=== PATIENT | male | born 1950 | race Caucasian/White ===

== ENCOUNTER 2017-01-24 14:20 | Inpatient (IN) | payer MEDICARE, OTHER ==
[2017-01-24 17:37] LABS: BASOPHILS # (AUTO) 0.1 10^3/uL (0.0-0.1); BASOPHILS % (AUTO) 0.6 %; EOSINOPHILS % (AUTO) 0.1 %; HCT - HEMATOCRIT 44.9 % (42.0-52.0); HGB - HEMOGLOBIN 15.3 g/dL (14.0-18.0); LYMPHOCYTES # (AUTO) 1.4 10^3/uL (1.5-3.5); LYMPHOCYTES % (AUTO) 9.6 %; MEAN CORPUSCULAR HGB CONC 34.1 g/dL (32.0-36.0); MEAN CORPUSCULAR VOLUME 105.4 fL (80.0-94.0); MEAN PLATELET VOLUME 7.3 fL (7.4-11.4); MONOCYTES # (AUTO) 1.1 10^3/uL (0.0-1.0); MONOCYTES % (AUTO) 7.5 %; NEUTROPHILS # (AUTO) 11.9 10^3/uL (1.5-6.6); NEUTROPHILS % (AUTO) 82.2 %; RED BLOOD COUNT 4.26 10^6/uL (4.70-6.10); RED CELL DISTRIBUTION WIDTH 13.5 % (12.0-15.0); UNCORRECTED WHITE BLOOD COUNT 14.4 x10^3/uL; WHITE BLOOD COUNT 14.4 x10^3/uL (4.8-10.8)
[2017-01-24 17:52] LABS: ALBUMIN/GLOBULIN RATIO 1.1 (1.0-2.2); BILIRUBIN,TOTAL 0.8 mg/dL (0.2-1.0); CALCIUM 9.3 mg/dL (8.5-10.3); POTASSIUM 4.8 mmol/L (3.5-5.0); TOTAL PROTEIN 7.7 g/dL (6.7-8.2)
[2017-01-24] MEDS ORDERED: SODIUM CHLORIDE 0.9% 2,000 ML IV ONE (18:19)
[2017-01-24 18:46] LABS: BILIRUBIN,URINE NEGATIVE (NEGATIVE); PH,URINE 5.5 PH (5.0-7.5)
[2017-01-24 18:47] LABS: UA w/ MICROSCOPIC CHARGE YES
[2017-01-24 18:59] LABS: UR CULTURE IF IND INDICATED
--- NOTE | 2017-01-24 19:54 | ED Physician Documentation ---
History of Present Illness - Stated complaint Stated Complaint: LT LOW BACK PX - Chief complaint Chief Complaint: General - Additonal information Additional information: hx from pt 66 male no prior abd surgery had hematuria 3 night ago but felt well next day had severe L flank pain which reslved spont pain returned today chills no BM today nausea no urination today despite drinking fluids Review of Systems Constitutional: reports: Chills. denies: Fever GI: reports: Abdominal Pain, Abdominal Swelling, Nausea : reports: Hematuria Musculoskeletal: reports: Back pain Endocrine: denies: Easy bruising / bleeding Immunocompromised: denies: Immunocompromised PD PAST MEDICAL HISTORY - Past Medical History Past Medical History: Yes Cardiovascular: Hypertension - Past Surgical History Past Surgical History: Yes - Present Medications Home Medications: Ambulatory Orders Medication Instructions Recorded Confirmed Lisinopril 10 mg PO DAILY 12/18/14 01/24/17 Calcium Carbonate/Vitamin D3 2 each PO DAILY 01/24/17 01/24/17 [Calcium 600-Vit D3 500 Softgel] Teriparatide [Forteo] 2.4 ml SQ DAILY 01/24/17 01/24/17 - Allergies Allergies/Adverse Reactions: Allergies Allergy/AdvReac Type Severity Reaction Status Date / Time No Known Drug Allergies Allergy Verified 01/24/17 14:57 - Social History Does the pt smoke?: No Smoking Status: Never smoker Does the pt drink ETOH?: Yes Does the pt have substance abuse?: No - Immunizations Immunizations are current?: No PD ED PE NORMAL - Vitals Vital signs reviewed: Yes - Cardiac Cardiac: RRR - Respiratory Respiratory: No respiratory distress, Clear bilaterally - Abdomen Abdomen: Soft, Other (distended, non tedner, no pulsatile mass appreciated, ) - Back Back: No CVA TTP - Derm Derm: Other (small single flat non blanching purpish discoloration ot posterior L hand) Results - Vitals Vitals: Vital Signs - 24 hr 01/24/17 01/24/17 01/24/17 14:51 17:51 20:16 Temperature 36.6 C 36.1 C L Heart Rate 117 H 112 H 107 H Respiratory 16 16 20 Rate Blood Pressure 137/85 H 157/92 H 149/60 H O2 Saturation 97 98 98 Oxygen O2 Source Room air - Labs Labs: Laboratory Tests 01/24/17 01/24/17 01/24/17 17:30 17:30 17:30 WBC 14.4 H RBC 4.26 L Hgb 15.3 Hct 44.9 MCV 105.4 H MCH 36.0 H MCHC 34.1 RDW 13.5 Plt Count 235 MPV 7.3 L Neut # 11.9 H Lymph # 1.4 L [place] # 1.1 H Eos # 0.0 Baso # 0.1 Absolute Nucleated RBC 0.00 Nucleated RBC % 0.0 Sodium 133 L Potassium 4.8 Chloride 97 L Carbon Dioxide 24 Anion Gap 12.0 BUN 13 Creatinine 1.0 Estimated GFR (MDRD) 75 L Glucose 132 H Lactic Acid 2.3 H Calcium 9.3 Total Bilirubin 0.8 AST 59 H ALT 55 Alkaline Phosphatase 62 Total Protein 7.7 Albumin 4.0 Globulin 3.7 Albumin/Globulin Ratio 1.1 Lipase 28 Urine Color Urine Clarity Urine pH Ur Specific [place] Urine Protein Urine Glucose (UA) Urine Ketones Urine Occult Blood Urine Nitrite Urine Bilirubin Urine Urobilinogen Ur Leukocyte Esterase Urine RBC Urine WBC Ur Squamous Epith Cells Urine Crystals Urine Bacteria Urine Casts Urine Mucus Ur Microscopic Review Urine Culture Comments 01/24/17 18:05 WBC RBC Hgb Hct MCV MCH MCHC RDW Plt Count MPV Neut # Lymph # [place] # Eos # Baso # Absolute Nucleated RBC Nucleated RBC % Sodium Potassium Chloride Carbon Dioxide Anion Gap BUN Creatinine Estimated GFR (MDRD) Glucose Lactic Acid Calcium Total Bilirubin AST ALT Alkaline Phosphatase Total Protein Albumin Globulin Albumin/Globulin Ratio Lipase Urine Color YELLOW Urine Clarity HAZY Urine pH 5.5 Ur Specific [place] 1.025 Urine Protein TRACE Urine Glucose (UA) NEGATIVE Urine Ketones NEGATIVE Urine Occult Blood LARGE H Urine Nitrite NEGATIVE Urine Bilirubin NEGATIVE Urine Urobilinogen 0.2 (NORMAL) Ur Leukocyte Esterase TRACE H Urine RBC 11-25 H Urine WBC 6-10 H Ur Squamous Epith Cells FEW Squamous Urine Crystals 11-25 Ca Oxalate Urine Bacteria Few Urine Casts 0-2 Hyaline Casts Urine Mucus Marked Strands Ur Microscopic Review INDICATED Urine Culture Comments INDICATED - Rads (name of study) CT AP angio Radiology: See rad report (mildly obstructing 5 X 3 mm proximal left ureteral stone, atherosclerotic aorta s dissection or aneurysm, mild stenosis celian and renals, prox sup mesenteric soft plaque withiut stenosis or dissection, emphysema) PD MEDICAL DECISION MAKING - ED course ED course: spoke to urology Dr Marshall at [facility] he feels pt could be kept at [facility] for tonight with the following recommendations rec rocephin 2 g q 24 h, IVF aggressive 200/hr, pain meds as needed, NPO for possible surgery tomorrow, CBC lactate BMP in AM, blood and urine cultures pending, if worsening or unstable overnight page urology, in AM page urology Dr Marshall for update and potential transfer Departure - Departure Disposition: 66 [facility] DC/Xfer Clinical Impression: Renal colic, Pyelonephritis, SIRS (systemic inflammatory response syndrome) Condition: Fair Discharge Date/Time: 01/24/17 23:15
[2017-01-24] MEDS ORDERED: IOPAMIDOL-300 100 ML VIAL ONE (20:26)
[2017-01-24] MEDS ORDERED: IOPAMIDOL-300 100 ML VIAL IVP ONE (20:43)
--- NOTE | 2017-01-24 21:09 | CT Preliminary Report ---
Exam: CT ABDOMEN/PELVIS ANGIO IMPRESSION: 1. Mildly obstructing 5 x 3 mm proximal left ureteral stone. 2. Atherosclerotic aorta without evidence of aneurysm or dissection. 3. Mild stenosis at the celiac and both renal artery origins. 4. Proximal superior mesenteric artery soft plaque without significant stenosis or dissection. 5. Emphysema. [facility] SITE ID: [id number]
--- NOTE | 2017-01-24 21:12 | CT Report ---
EXAM: CT ANGIOGRAM ABDOMEN AND PELVIS WITH CONTRAST EXAM DATE: 01/24/2017 08:50 PM. CLINICAL HISTORY: Abd pain L flank pain tachy high lactate. COMPARISONS: None. TECHNIQUE: Routine helical CT angiogram imaging was performed through the abdomen and pelvis in the a rterial phase. IV contrast: 100 ML ISOVUE 300. Enteric contrast: No. Reconstructions: Coronal, sagitt al, and 3D MIP reconstructions. In accordance with CT protocol optimization, one or more of the following dose reduction techniques w ere utilized for this exam: automated exposure control, adjustment of mA and/or KV based on patient s ize, or use of iterative reconstructive technique. FINDINGS: Vasculature: There is calcified plaque throughout the abdominal aorta and iliac arteries. No evidence of aneurysm or dissection. Focal plaque resulting in mild celiac artery origin stenosis. There is mi ld soft plaque in the proximal superior mesenteric artery however no significant stenosis. The inferi or mesenteric artery is patent. Mild stenosis seen at the renal artery origins. Lung Bases: Emphysematous changes. No pleural effusion. Abdominal Solid Organs: There is a 5 x 3 mm stone in the proximal left ureter resulting in mild colle cting system dilatation, slight delayed renal enhancement and perinephric stranding. No renal masses or retroperitoneal lymphadenopathy. The liver, pancreas and spleen are unremarkable. No adrenal gland mass. Normal gallbladder. Peritoneal Cavity: Normal. No free fluid, free air, or acute inflammatory process. Pelvic Organs: Normal. The bladder and visualized pelvic organs are within normal limits. Bones: There are multiple chronic lower thoracic and lumbar spine compression fracture deformities. N o acute bony abnormality. Other: None. IMPRESSION: 1. Mildly obstructing 5 x 3 mm proximal left ureteral stone. 2. Atherosclerotic aorta without evidence of aneurysm or dissection. 3. Mild stenosis at the celiac and both renal artery origins. 4. Proximal superior mesenteric artery soft plaque without significant stenosis or dissection. 5. Emphysema. [facility] Referring Provider Line: [phone] SITE ID: [id number]
[2017-01-24] MEDS ORDERED: cefTRIAXone 1 GM in SODIUM CHLORIDE 0.9% MINIBAG 100 ML IV STA ×2 (21:35→22:03)
[2017-01-24] MEDS ORDERED: cefTRIAXone 1 GM VIAL ONE ×2 (21:43→22:23)
[2017-01-24] MEDS ORDERED: SODIUM CHLORIDE 0.9% 1,000 ML IV ONE (22:03)
[2017-01-24] MEDS ORDERED: PROMETHAZINE 25 MG/1 ML VIAL IM PRN (22:14)
[2017-01-24] MEDS ORDERED: PROCHLORPERAZINE 10 MG/2 ML VIAL IVP PRN (22:14)
[2017-01-24] MEDS ORDERED: SODIUM CHLORIDE FLUSH 0.9% 10 ML SYRINGE IVP PRN (22:14)
[2017-01-24] MEDS ORDERED: ACETAMINOPHEN 325 MG TABLET PO PRN (22:14)
[2017-01-24] MEDS ORDERED: ONDANSETRON 4 MG/2 ML VIAL IVP PRN (22:14)
[2017-01-24] MEDS ORDERED: ZOLPIDEM 5 MG TABLET PO PRN (22:14)
[2017-01-24] MEDS ORDERED: MORPHINE 2 MG/ML SYRINGE IVP PRN (22:14)
[2017-01-24] MEDS ORDERED: oxyCODONE 5 MG TABLET PO PRN ×2 (22:14)
--- NOTE | 2017-01-25 02:53 | HISTORY & PHYSICAL EXAMINATION ---
Chief Complaint - Chief Complaint Chief Complaint: Left flank pain History of Present Illness - Admitted From Admitted From:: Emergency department - History Obtained From Records Reviewed: Yes History obtained from: Patient Exam Limitations: None - History of Present Illness HPI Comment/Other: Patient is a 66-year-old gentleman with a past medical history significant for 6 compression fractures with vertebral collapse secondary to osteoporosis, subclavian steal syndrome status post stenting, hypertension, obesity, peripheral arterial disease, Dupuytren's contracture in COPD who presents to the emergency department with a chief complaint of left flank pain. The patient states that he first noticed symptoms on Monday night which was 3 days ago. He states that initially he noticed that he was having increased urinary frequency. The patient later noticed that his urine was orange/reddish color but at that time he states he was having no pain at all. The patient states he continues to have increased urinary frequency throughout the next day but otherwise felt okay. The patient states that all of a sudden yesterday when he was standing up he felt a severe pain in the left flank. The patient states that the pain was a 10 out of 10 and lasted for several minutes. The patient states that he vomited twice and then tried to drink tons of fluid. The patient states that the pain initially decreased in intensity and then eventually resolved completely. The patient states he did not take any medications for the pain. The patient states that he was able to sleep at night and then this morning he felt okay. The patient states that just before lunch he again had this sudden onset of severe pain in the left flank. The patient states that he drank 42 ounces of water however today he noticed he was not urinating. The patient states that the pain waxed and waned throughout the rest of the day and would improve to as little as a 4 out of 10 but then would go back to a 10 out of 10 in intensity. The patient states that he began having sweats and felt very clammy he checked his temperature and it was normal. The patient states that he finally decided to come into the emergency department as the pain just was not subsiding. The patient states that on arrival to the emergency department he did have some chills and finally was able to make some urine after which he states that his pain did improve. Patient otherwise denies any headaches, blurred vision, runny nose, sore throat , nasal congestion, difficulty swallowing, chest pain, shortness of air, orthopnea, PND, increased lower extremity swelling, he currently denies any nausea, vomiting, diarrhea, constipation, he denies any joint swelling, muscle aches, neck stiffness, changes in his appetite, recent unintentional weight loss or focal neurologic deficits. On presentation to the emergency department the patient was afebrile however he was tachycardic with heart rate of 117 but his blood pressure was stable and he otherwise had no respiratory distress. The patient's lab work revealed a leukocytosis of 14.4 and a slight hyponatremia of 133. The patient did have an elevated lactic acid of 2.3 and the patient's urine revealed a large occult blood with trace leukocyte esterase positive RBCs and WBCs with calcium oxalate crystals and few bacteria. The patient underwent a CT angios of the abdomen and pelvis which revealed a mildly obstructing 5 x 3 mm proximal left ureteral stone. The emergency room physician spoke with an on-call urologist at [facility] by the name of Dr. Marshall. He recommended that the patient be kept at [facility] overnight and given 2 g of IV ceftriaxone every 24 hours, aggressive IV fluids at 200 mL's per hour, pain meds as needed and kept n.p.o. for possible surgery tomorrow. He also recommended a repeat CBC and lactate along with a BMP in the morning. He also asked that blood cultures and urine cultures be collected. He stated that if the patient became unstable or had worsening symptoms that he should be immediately paged overnight for possible transfer to [facility] he left his phone number which is [phone]. The patient was admitted to [facility]. History - Past Medical History Cardiovascular: reports: Hypertension Respiratory: reports: COPD Neuro: reports: None Endocrine/Autoimmune: reports: None GI: reports: None : reports: None HEENT: reports: None Psych: reports: None Musculoskeletal: reports: Osteoporosis, Other (6 vertebral compression fractures ) Derm: reports: None Other Past Medical History: dupuytren's contractures in both hands, spinal colapse, Osteoporosis, obesity, peripheral arterial disease, COPD, subclavian steal syndrome status post stent, 6 compression fractures. - Past Surgical History Ortho: reports: Spine surgery - Family & Social History Family History: Mother: , Cancer (Colon cancer), Father: , Sister: Diabetes, Type 2 Living arrangement: At home Living Situation: Alone Social History Notes: Patient lives on [facility] alone. He is a retired teacher. He moved to [facility] in 1992. 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 The patient has a history of tobacco abuse. The patient previously smoked 4 packs per day for over 30 years and quit about 10 years ago. The patient does drink alcohol he drinks 5-6 glasses of wine daily and he does use cannabis oil. - POLST Patient has POLST: No POLST Status: Full Code Meds/Allgy - Home Medications Home Medications: Ambulatory Orders Medication Instructions Recorded Confirmed Lisinopril 10 mg PO DAILY 12/18/14 01/24/17 Calcium Carbonate/Vitamin D3 2 each PO DAILY 01/24/17 01/24/17 [Calcium 600-Vit D3 500 Softgel] Teriparatide [Forteo] 2.4 ml SQ DAILY 01/24/17 01/24/17 - Allergies Allergies/Adverse Reactions: Allergies Allergy/AdvReac Type Severity Reaction Status Date / Time No Known Drug Allergies Allergy Verified 01/24/17 14:57 Review of Systems - Other Findings Other Findings: A comprehensive review of systems was performed the pertinent positives and negatives are stated above in the HPI and the remainder of the review of systems is negative. Exam - Vital Signs Reviewed Vital Signs: Yes Vital Signs: Vital Signs x48h Temp Pulse Pulse Resp BP BP Pulse Ox 01/24/17 23:49 169/84 H 01/24/17 23:46 36.9 C 88 24 171/78 H 97 01/24/17 23:15 37.4 C 91 16 165/74 H 97 - Physical Exam General Appearance: positive: No acute distress, Alert, Mild distress Eyes Bilateral: positive: Normal inspection, PERRL, EOMI, No lid inflammation, Conjunctivae nml, No scleral icterus ENT: positive: ENT inspection nml, Pharynx nml, Dry mucous membranes. negative : Purulent nasal drainage, Pharyngeal erythema, Oral lesions Neck: positive: Nml inspection, Thyroid nml, No JVD, Trachea midline. negative : Thyromegaly, Lymphadenopathy (R), Lymphadenopathy (L), Stiff neck, Carotid bruit, Tracheal deviation Respiratory: positive: Chest non-tender, No respiratory distress, Breath sounds nml. negative: Wheezes, Rales, Rhonchi Cardiovascular: positive: No murmur, No gallop, Tachycardia Peripheral Pulses: positive: 2+ Abdomen: positive: No organomegaly, Nml bowel sounds, No distention, Tenderness (Epigastric and right upper quadrant area). negative: Guarding, Rebound, Hepatomegaly Back: positive: Nml inspection, CVA tenderness (L) Skin: positive: Color nml, No rash, Warm, Dry. negative: Cyanosis, Pallor Extremities: positive: Nml appearance, No pedal edema, Other (Kyphosis) Neurologic/Psychiatric: positive: Oriented x3, CN's nml (2-12), Motor nml, Sensation nml, Mood/affect nml Conclusion/Plan - Problem List (1) Sepsis Conclusion/Plan: Patient presented with left flank pain with chills but no fever. He was found to have a mildly obstructing 5 x 3 mm proximal left ureteral stone with renal enhancement and perinephric stranding and left CVA tenderness. The patient's UA showed pyuria and bacteriuria with RBCs and blood consistent with pyelonephritis. The patient on presentation was tachycardic, had a leukocytosis of 14.4 and had a lactic acid of 2.3. Although patient did not have fever, change in mental status or renal failure he appears to have early sepsis secondary to pyelonephritis. Plan: Place patient on IV ceftriaxone for treatment of pyelonephritis Give patient aggressive hydration with IV fluids at 200 mL's per hour Monitor vital signs closely Monitor lactate Monitor CBC Blood cultures Urine cultures (2) Pyelonephritis Conclusion/Plan: Patient presented with left flank pain. Patient was also having increased urinary frequency at home and had chills on presentation. Patient was tachycardic on presentation with elevated lactic acid and WBC consistent with early sepsis. Patient CT abdomen pelvis showed that he did have a mildly obstructing ureteral stone with perinephric stranding consistent with pyelonephritis. Patient's UA was positive for WBCs, leukocyte esterase and bacteria. Patient did have left CVA tenderness. Plan: Patient will be treated with IV ceftriaxone for treatment of pyelonephritis Urine cultures and blood cultures have been obtained and are pending Urologist Dr. Marshall was spoken to at [facility] and asked that the patient be observed closely and if he had any deterioration that patient be transferred to [facility]. Aggressive IV hydration Nausea and pain control (3) Ureteral stone Conclusion/Plan: Patient has a mildly obstructing left ureteral stone which is 5 x 3 mm. Patient presented with left flank pain and left CVA tenderness. Patient's UA did have blood and RBCs but also had WBCs and bacteria. Patient was septic on presentation. Patient may have an infected ureteral stone and has developed pyelonephritis. Urologist Dr. Marshall of [facility] was contacted and recommended admitting the patient to [facility] for IV fluids, aggressive IV hydration, pain control and nausea control. He stated if the patient had any signs of deterioration that he would need to be transferred for removal of the ureteral stone. Plan: Treat with IV ceftriaxone Aggressive IV hydration Pain and nausea control N.p.o. after midnight for possible ureteral stone retrieval if needed Continue to stay in close contact with Dr. Marshall of urology at [facility] Urine and blood cultures pending (4) Hyponatremia Conclusion/Plan: Patient presented with hyponatremia. Patient likely has hypovolemic hyponatremia secondary to dehydration from sepsis and pyelonephritis. Plan: Give IV fluids Monitor sodium (5) COPD (chronic obstructive pulmonary disease) Conclusion/Plan: Patient has history of COPD and emphysema. Currently he is not in any respiratory distress and appears to be stable. Patient will be placed on nebulizers as needed. (6) Hypertension Conclusion/Plan: Patient has history of hypertension and did have elevated blood pressure on presentation likely secondary to pain. Patient will be dose of lisinopril was hospitalized. We will continue to monitor the patient's blood pressure closely. Qualifiers: Hypertension type: essential hypertension Qualified Code(s): I10 - Essential (primary) hypertension (7) Alcohol abuse Conclusion/Plan: Patient does drink excessive amount of alcohol daily. The patient drinks 5-6 glasses of wine daily. I did recommend to the patient that he needs to cut down on his alcohol use. The patient has never had alcohol withdrawal. Patient will be monitored closely for withdrawal. (8) Prophylactic use of low molecular weight heparin for venous thromboembolism Conclusion/Plan: Patient will be placed on Lovenox for DVT prophylaxis while he is hospitalized. - Lab Results Lab results reviewed: Yes Fish Bones: 01/24/17 17:30 01/24/17 17:30 Other Lab Results: Laboratory Results WBC 14.4 x10^3/uL (4.8-10.8) H 01/24/17 17:30 RBC 4.26 10^6/uL (4.70-6.10) L 01/24/17 17:30 Hgb 15.3 g/dL (14.0-18.0) 01/24/17 17:30 Hct 44.9 % (42.0-52.0) 01/24/17 17:30 MCV 105.4 fL (80.0-94.0) H 01/24/17 17:30 MCH 36.0 pg (27.0-31.0) H 01/24/17: MCHC 34.1 g/dL (32.0-36.0) 01/24/17 17: RDW 13.5 % (12.0-15.0) 01/24/17 17:30 Plt Count 235 10^3/uL (130-450) 01/24/17 17:30 MPV 7.3 fL (7.4-11.4) L 01/24/17 17:30 Neut # 11.9 10^3/uL (1.5-6.6) H 01/24/17 17:30 Lymph # 1.4 10^3/uL (1.5-3.5) L 01/24/17 17:30 [place] # 1.1 10^3/uL (0.0-1.0) H 01/24/17 17:30 Eos # 0.0 10^3/uL (0.0-0.7) 01/24/17 17:30 Baso # 0.1 10^3/uL (0.0-0.1) 01/24/17 17:30 Absolute Nucleated RBC 0.00 x10^3/uL 01/24/17 17:30 Nucleated RBC % 0.0 /100WBC 01/24/17 17:30 Sodium 133 mmol/L (135-145) L 01/24/17 17:30 Potassium 4.8 mmol/L (3.5-5.0) 01/24/17 17:30 Chloride 97 mmol/L (101-111) L 01/24/17 17:30 Carbon Dioxide 24 mmol/L (21-32) 01/24/17 17:30 Anion Gap 12.0 (6-13) 01/24/17 17:30 BUN 13 mg/dL (6-20) 01/24/17 17:30 Creatinine 1.0 mg/dL (0.6-1.2) 01/24/17 17:30 Estimated GFR (MDRD) 75 (>89) L 01/24/17 17:30 Glucose 132 mg/dL (70-100) H 01/24/17 17:30 Lactic Acid 2.3 mmol/L (0.5-2.2) H 01/24/17 17:30 Calcium 9.3 mg/dL (8.5-10.3) 01/24/17 17:30 Total Bilirubin 0.8 mg/dL (0.2-1.0) 01/24/17 17:30 AST 59 IU/L (10-42) H 01/24/17 17:30 ALT 55 IU/L (10-60) 01/24/17 17:30 Alkaline Phosphatase 62 IU/L (42-121) 01/24/17 17:30 Total Protein 7.7 g/dL (6.7-8.2) 01/24/17 17:30 Albumin 4.0 g/dL (3.2-5.5) 01/24/17 17:30 Globulin 3.7 g/dL (2.1-4.2) 01/24/17 17:30 Albumin/Globulin Ratio 1.1 (1.0-2.2) 01/24/17 17:30 Lipase 28 U/L (22-51) 01/24/17 17:30 Urine Color YELLOW 01/24/17 18:05 Urine Clarity HAZY (CLEAR) 01/24/17 18:05 Urine pH 5.5 PH (5.0-7.5) 01/24/17 18:05 Ur Specific [place] 1.025 (1.002-1.030) 01/24/17 18:05 Urine Protein TRACE mg/dL (NEGATIVE) 01/24/17 18:05 Urine Glucose (UA) NEGATIVE mg/dL (NEGATIVE) 01/24/17 18:05 Urine Ketones NEGATIVE mg/dL (NEGATIVE) 01/24/17 18:05 Urine Occult Blood LARGE (NEGATIVE) H 01/24/17 18:05 Urine Nitrite NEGATIVE (NEGATIVE) 01/24/17 18:05 Urine Bilirubin NEGATIVE (NEGATIVE) 01/24/17 18:05 Urine Urobilinogen 0.2 (NORMAL) E.U./dL (NORMAL) 01/24/17 18:05 Ur Leukocyte Esterase TRACE (NEGATIVE) H 01/24/17 18:05 Urine RBC 11-25 /HPF (0-5) H 01/24/17 18:05 Urine WBC 6-10 /HPF (0-3) H 01/24/17 18:05 Ur Squamous Epith Cells FEW Squamous (<= Few) 01/24/17 18:05 Urine Crystals 11-25 Ca Oxalate /LPF 01/24/17 18:05 Urine Bacteria Few /HPF (None Seen) 01/24/17 18:05 Urine Casts 0-2 Hyaline Casts /LPF 01/24/17 18:05 Urine Mucus Marked Strands 01/24/17 18:05 Ur Microscopic Review INDICATED 01/24/17 18:05 Urine Culture Comments INDICATED 01/24/17 18:05 - Diagnostic Imaging Results Diagnostic Imaging Results: positive: Final report reviewed Diagnostic Imaging Results Comments: CT abdomen/pelvis angiogram Impression: 1. Mildly obstructing 5 x 3 mm proximal left ureteral stone 2. Atherosclerotic aorta without evidence of aneurysm or dissection. 3. Mild stenosis at the celiac and both renal artery origins. 4. Proximal superior mesenteric artery soft plaque without significant stenosis or dissection. 5. Emphysema - EKG Results EKG Interpreted Independently: Yes EKG Findings: No ST elevations or ischemic changes noted Issues/Core Measures - Anticipated LOS Anticipated Stay Length: 2 or more midnights - DVT/VTE - Prophylaxis VTE/DVT Prophylaxis med ordered at admit?: Yes
[2017-01-25] MEDS: SODIUM CHLORIDE 0.9% 1,000 ML IV SCH ×5 (03:21→22:11)
[2017-01-25] MEDS: SODIUM CHLORIDE FLUSH 0.9% 10 ML SYRINGE IVP SCH ×3 (04:11→22:12)
[2017-01-25 05:52] LABS: BASOPHILS # (AUTO) 0.1 10^3/uL (0.0-0.1); BASOPHILS % (AUTO) 0.9 %; EOSINOPHILS % (AUTO) 0.5 %; HCT - HEMATOCRIT 37.1 % (42.0-52.0); HGB - HEMOGLOBIN 12.8 g/dL (14.0-18.0); LYMPHOCYTES # (AUTO) 1.7 10^3/uL (1.5-3.5); LYMPHOCYTES % (AUTO) 23.6 %; MEAN CORPUSCULAR HEMOGLOBIN 36.7 pg (27.0-31.0); MEAN CORPUSCULAR HGB CONC 34.5 g/dL (32.0-36.0); MEAN CORPUSCULAR VOLUME 106.3 fL (80.0-94.0); MEAN PLATELET VOLUME 7.2 fL (7.4-11.4); MONOCYTES # (AUTO) 0.7 10^3/uL (0.0-1.0); MONOCYTES % (AUTO) 10.2 %; NEUTROPHILS # (AUTO) 4.5 10^3/uL (1.5-6.6); NEUTROPHILS % (AUTO) 64.8 %; NUCLEATED RED BLOOD CELLS AUTO 0.1 /100WBC; RED BLOOD COUNT 3.49 10^6/uL (4.70-6.10); RED CELL DISTRIBUTION WIDTH 13.5 % (12.0-15.0)
[2017-01-25 05:59] LABS: ALBUMIN/GLOBULIN RATIO 1.1 (1.0-2.2); BILIRUBIN,TOTAL 0.9 mg/dL (0.2-1.0); CALCIUM 7.6 mg/dL (8.5-10.3); CREATININE 0.9 mg/dL (0.6-1.2); POTASSIUM 3.9 mmol/L (3.5-5.0); TOTAL PROTEIN 5.7 g/dL (6.7-8.2)
[2017-01-25] MEDS ORDERED: LISINOPRIL 5 MG TABLET PO SCH (09:00)
[2017-01-25] MEDS: SACCHAROMYCES BOULARDII 250 MG CAPSULE PO SCH ×2 (09:42→17:47)
[2017-01-25] MEDS: ENOXAPARIN 40 MG/0.4 ML SYRINGE SUBQ SCH (09:42)
[2017-01-25] MEDS: POLYETHYLENE GLYCOL 3350 17 GM PACKET PO SCH (09:43)
[2017-01-25] MEDS: FAMOTIDINE 20 MG TABLET PO SCH (09:43)
[2017-01-25] MEDS: IPRATROPIUM/ALBUTEROL 3 ML NEB INH PRN ×2 (09:50→15:40)
[2017-01-25] MEDS: LOSARTAN 50 MG TABLET PO SCH (11:45)
[2017-01-25] MEDS: OMEGA-3 ACID ETHYL ESTERS 1 GM CAPSULE PO SCH (12:56)
[2017-01-25] MEDS: CHOLECALCIFEROL 1,000 UNIT TABLET PO SCH (12:56)
[2017-01-25] MEDS: CALCIUM CARBONATE CHEW 500 MG TABLET PO SCH (12:56)
[2017-01-25] MEDS: TAMSULOSIN 0.4 MG CAPSULE PO SCH (14:36)
--- NOTE | 2017-01-25 16:21 | PROVIDER PROGRESS NOTE ---
Subjective - Prog Note Date Prog Note Date: 01/25/17 - Subjective Pt reports feeling: Improved Subjective: pt report he feel much better, no flank pain, no fever or chill. No chest pain, headache, abdominal pain. I called Dr. Marshall, urologist, ER already contacted with him before. I reported pt's update information to him. He recommend pt can be D/C tomorrow with Flomax , antibiotics Levaquin, pain meds if pt continue to improve. Current Medications - Current Medications Current Medications: Active Medications Acetaminophen (Tylenol) 650 mg PO Q4HR PRN PRN Reason: Pain 1 to 4 Albuterol/Ipratropium (Duoneb) 3 ml INH Q4HR PRN PRN Reason: Wheezing Last Admin: 01/26/17 09:12 Dose: 3 ml Calcium Carbonate/Glycine (Tums) 1,250 mg PO DAILY [facility] Last Admin: 01/26/17 07:42 Dose: 1,250 mg Cholecalciferol (Vitamin D3) 2,000 unit PO DAILY [facility] Last Admin: 01/26/17 07:43 Dose: 2,000 unit Enoxaparin Sodium (Lovenox) 40 mg SUBQ DAILY [facility] Last Admin: 01/26/17 07:53 Dose: Not Given Famotidine (Pepcid) 20 mg PO DAILY [facility] Last Admin: 01/26/17 07:44 Dose: 20 mg Fluticasone Propionate (Flonase) 0 sprays SLICK DAILY [facility] Last Admin: 01/26/17 07:44 Dose: 1 sprays Ceftriaxone Sodium 2 gm/ (Sodium Chloride) 100 mls @ 200 mls/hr IV Q24H [facility] Last Infusion: 01/25/17 22:45 Dose: Infused Sodium Chloride (Normal Saline 0.9%) 1,000 mls @ 200 mls/hr IV .Q5H [facility] Last Admin: 01/26/17 09:20 Dose: 200 mls/hr Losartan Potassium (Cozaar) 50 mg PO DAILY [facility] Last Admin: 01/26/17 07:44 Dose: 50 mg Morphine Sulfate (Morphine) 2 mg IVP Q2H PRN PRN Reason: Pain 8 to 10 [id number] Ethyl Esters (Lovaza) 1 gm PO DAILY [facility] Last Admin: 01/26/17 07:44 Dose: 1 gm Ondansetron HCl (Zofran Inj) 4 mg IVP Q6HR PRN PRN Reason: Nausea / Vomiting Oxycodone HCl (Roxicodone) 5 mg PO Q4HR PRN PRN Reason: Pain 5 to 7 Oxycodone HCl (Roxicodone) 10 mg PO Q4HR PRN PRN Reason: Pain 8 to 10 (Teriparatide [ Forteo] 2.4 Ml) Subq Injection 1 each SUBQ DAILY [facility] Last Admin: 01/26/17 09:06 Dose: Not Given Polyethylene Glycol (Miralax) 17 gm PO DAILY [facility] Last Admin: 01/26/17 09:07 Dose: Not Given Prochlorperazine Edisylate (Compazine Inj) 10 mg IVP Q6HR PRN PRN Reason: Nausea / Vomiting Promethazine HCl (Phenergan Inj) 25 mg IM Q6HR PRN PRN Reason: Nausea / Vomiting Saccharomyces Boulardii (Florastor) 250 mg PO BIDWM [facility] Last Admin: 01/26/17 07:41 Dose: 250 mg Sodium Chloride (Normal Saline Flush 0.9%) 10 ml IVP PRN PRN PRN Reason: NEEDED PER PROVIDER ORDERS Sodium Chloride (Normal Saline Flush 0.9%) 10 ml IVP Q8HR [facility] Last Admin: 01/26/17 06:23 Dose: Not Given Tamsulosin HCl (Flomax) 0.4 mg PO DAILY [facility] Last Admin: 01/26/17 07:44 Dose: 0.4 mg Zolpidem Tartrate (Ambien) 5 mg PO QPM PRN PRN Reason: Insomnia Teriparatide [Forteo] 2.4 ml SQ DAILY 01/24/17 Calcium Carbonate/Vitamin D3 [Calcium 600-Vit D3 400 Tablet] 2 tab PO DAILY Cholecalciferol (Vitamin D3) [Vitamin D3] 2,000 units PO DAILY 01/25/17 Losartan [Cozaar] 50 mg PO DAILY 01/25/17 [place]-3 Acid Ethyl Esters [Lovaza] 1 gm PO DAILY 01/25/17 Objective - Vital Signs/Intake & Output Reviewed Vital Signs: Yes Vital Signs: Vital Signs x48h Temp Pulse Pulse Resp BP Pulse Ox 01/25/17 15:40 87 16 01/25/17 15:23 37.1 C 86 18 148/79 H 96 01/25/17 12:55 36.9 C 81 16 145/66 H 96 01/25/17 09:50 94 16 Intake & Output: Intake & Output 01/22/17 01/23/17 01/24/17 01/25/17 23:59 23:59 23:59 23:59 Intake Total 100 2796.667 Output Total 800 Balance 100 1996.667 - Objective General Appearance: positive: No acute distress, Alert. negative: Lethargic Eyes Bilateral: positive: Normal inspection, PERRL, EOMI. negative: No lid inflammation, Conjunctivae nml ENT: positive: ENT inspection nml, Pharynx nml, No signs of dehydration. negative: Purulent nasal drainage, Pharyngeal erythema, Oral lesions Neck: positive: Nml inspection, Thyroid nml, No JVD, Trachea midline. negative : Thyromegaly, Lymphadenopathy (R), Lymphadenopathy (L), Stiff neck, Carotid bruit, Swelling/bruising, Tracheal deviation Respiratory: positive: Chest non-tender, No respiratory distress, Breath sounds nml. negative: Wheezes, Rales, Rhonchi Cardiovascular: positive: Regular rate & rhythm, No murmur, No gallop. negative : Irregularly irregular, Extrasystoles, Tachycardia, Bradycardia, Systolic murmur, Diastolic murmur Peripheral Pulses: 2+ Radial (R), 2+ Radial (L), 2+ Dorsalis pedis (R), 2+ Dorsalis pedis (L) Abdomen: positive: Non-tender, No organomegaly, Nml bowel sounds, No distention. negative: Tenderness, Guarding, Rebound Back: positive: Nml inspection. negative: CVA tenderness (R), CVA tenderness (L ) Skin: positive: Color nml, No rash, Warm, Dry. negative: Cyanosis, Diaphoresis , Pallor, Skin rash Extremities: positive: Non-tender, Full ROM, Nml appearance. negative: Pedal edema, Joint swelling, Selvin's sign/cords Neurologic/Psychiatric: positive: Oriented x3, Motor nml, Sensation nml, Mood/ affect nml. negative: Weakness, Sensory loss, Facial droop, Slurred/abnml speech, Depressed mood/affect - Lab Results Fish Bones: 01/26/17 05:42 01/26/17 05:42 Other Labs: Lab Results x24hrs 01/25/17 01/25/17 01/25/17 Range/Units 05:40 05:40 05:40 WBC 7.0 (4.8-10.8) x10^3/uL RBC 3.49 L (4.70-6.10) 10^6/uL Hgb 12.8 L (14.0-18.0) g/dL Hct 37.1 L (42.0-52.0) % MCV 106.3 H (80.0-94.0) fL MCH 36.7 H (27.0-31.0) pg MCHC 34.5 (32.0-36.0) g/dL RDW 13.5 (12.0-15.0) % Plt Count 193 (130-450) 10^3/uL MPV 7.2 L (7.4-11.4) fL Neut # 4.5 (1.5-6.6) 10^3/uL Lymph # 1.7 (1.5-3.5) 10^3/uL [place] # 0.7 (0.0-1.0) 10^3/uL Eos # 0.0 (0.0-0.7) 10^3/uL Baso # 0.1 (0.0-0.1) 10^3/uL Absolute Nucleated RBC 0.00 x10^3/uL Nucleated RBC % 0.1 /100WBC Sodium 137 (135-145) mmol/L Potassium 3.9 (3.5-5.0) mmol/L Chloride 108 (101-111) mmol/L Carbon Dioxide 23 (21-32) mmol/L Anion Gap 6.0 (6-13) BUN 10 (6-20) mg/dL Creatinine 0.9 (0.6-1.2) mg/dL Estimated GFR (MDRD) 84 L (>89) Glucose 115 H (70-100) mg/dL Lactic Acid 1.1 (0.5-2.2) mmol/L Calcium 7.6 L (8.5-10.3) mg/dL Total Bilirubin 0.9 (0.2-1.0) mg/dL AST 30 (10-42) IU/L ALT 35 (10-60) IU/L Alkaline Phosphatase 44 (42-121) IU/L Total Protein 5.7 L (6.7-8.2) g/dL Albumin 3.0 L (3.2-5.5) g/dL Globulin 2.7 (2.1-4.2) g/dL Albumin/Globulin Ratio 1.1 (1.0-2.2) Assessment/Plan - Problem List (1) Renal colic Impression: (1) Sepsis Conclusion/Plan: pt's WBC and lactic acid lever is down to normal. No fever, chill, pain. HR in [facility] It is great improved. continue IV antibiotics and IVF continue vital, daily lab monitor Patient presented with left flank pain with chills but no fever. He was found to have a mildly obstructing 5 x 3 mm proximal left ureteral stone with renal enhancement and perinephric stranding and left CVA tenderness. The patient's UA showed pyuria and bacteriuria with RBCs and blood consistent with pyelonephritis. The patient on presentation was tachycardic, had a leukocytosis of 14.4 and had a lactic acid of 2.3. Although patient did not have fever, change in mental status or renal failure he appears to have early sepsis secondary to pyelonephritis. Plan: Place patient on IV ceftriaxone for treatment of pyelonephritis Give patient aggressive hydration with IV fluids at 200 mL's per hour Monitor vital signs closely Monitor lactate Monitor CBC Blood cultures Urine cultures (2) Pyelonephritis Conclusion/Plan: pt is great improved continue rocephin IV Patient presented with left flank pain. Patient was also having increased urinary frequency at home and had chills on presentation. Patient was tachycardic on presentation with elevated lactic acid and WBC consistent with early sepsis. Patient CT abdomen pelvis showed that he did have a mildly obstructing ureteral stone with perinephric stranding consistent with pyelonephritis. Patient's UA was positive for WBCs, leukocyte esterase and bacteria. Patient did have left CVA tenderness. Plan: Patient will be treated with IV ceftriaxone for treatment of pyelonephritis Urine cultures and blood cultures have been obtained and are pending Urologist Dr. Marshall was spoken to at [facility] and asked that the patient be observed closely and if he had any deterioration that patient be transferred to [facility]. Aggressive IV hydration Nausea and pain control (3) Ureteral stone Conclusion/Plan: no CVA tenderness now, pt feel his stone is pass down continue pain control IVF NS Patient has a mildly obstructing left ureteral stone which is 5 x 3 mm. Patient presented with left flank pain and left CVA tenderness. Patient's UA did have blood and RBCs but also had WBCs and bacteria. Patient was septic on presentation. Patient may have an infected ureteral stone and has developed pyelonephritis. Urologist Dr. Marshall of [facility] was contacted and recommended admitting the patient to [facility] for IV fluids, aggressive IV hydration, pain control and nausea control. He stated if the patient had any signs of deterioration that he would need to be transferred for removal of the ureteral stone. Plan: Treat with IV ceftriaxone Aggressive IV hydration Pain and nausea control N.p.o. after midnight for possible ureteral stone retrieval if needed Continue to stay in close contact with Dr. Marshall of urology at [facility] Urine and blood cultures pending (4) Hyponatremia Conclusion/Plan: resolved Patient presented with hyponatremia. Patient likely has hypovolemic hyponatremia secondary to dehydration from sepsis and pyelonephritis. Plan: Give IV fluids Monitor sodium (5) COPD (chronic obstructive pulmonary disease) Conclusion/Plan: stable, chronic continue current treatment Patient has history of COPD and emphysema. Currently he is not in any respiratory distress and appears to be stable. Patient will be placed on nebulizers as needed. (6) Hypertension Conclusion/Plan: stable, continue current treatment Patient has history of hypertension and did have elevated blood pressure on presentation likely secondary to pain. Patient will be dose of lisinopril was hospitalized. We will continue to monitor the patient's blood pressure closely. (7) Alcohol abuse Conclusion/Plan: consult pt cut down the alcohol use. Patient does drink excessive amount of alcohol daily. The patient drinks 5-6 glasses of wine daily. I did recommend to the patient that he needs to cut down on his alcohol use. The patient has never had alcohol withdrawal. Patient will be monitored closely for withdrawal.
[2017-01-25] MEDS ORDERED: cefTRIAXone 2 GM in SODIUM CHLORIDE 0.9% MINIBAG 100 ML IV SCH (22:00)
[2017-01-26] MEDS: FLUTICASONE NASAL SPRAY NAS SCH ×2 (01:23→07:44)
[2017-01-26] MEDS: SODIUM CHLORIDE 0.9% 1,000 ML IV SCH ×2 (02:50→09:20)
[2017-01-26 05:51] LABS: BASOPHILS % (AUTO) 0.5 %; EOSINOPHILS # (AUTO) 0.1 10^3/uL (0.0-0.7); EOSINOPHILS % (AUTO) 1.8 %; HCT - HEMATOCRIT 35.5 % (42.0-52.0); HGB - HEMOGLOBIN 12.2 g/dL (14.0-18.0); LYMPHOCYTES # (AUTO) 1.6 10^3/uL (1.5-3.5); MEAN CORPUSCULAR HEMOGLOBIN 36.7 pg (27.0-31.0); MEAN CORPUSCULAR HGB CONC 34.4 g/dL (32.0-36.0); MEAN CORPUSCULAR VOLUME 106.8 fL (80.0-94.0); MEAN PLATELET VOLUME 7.4 fL (7.4-11.4); MONOCYTES # (AUTO) 0.6 10^3/uL (0.0-1.0); MONOCYTES % (AUTO) 9.5 %; NEUTROPHILS # (AUTO) 4.2 10^3/uL (1.5-6.6); NEUTROPHILS % (AUTO) 64.2 %; RED BLOOD COUNT 3.33 10^6/uL (4.70-6.10); RED CELL DISTRIBUTION WIDTH 13.3 % (12.0-15.0); UNCORRECTED WHITE BLOOD COUNT 6.5 x10^3/uL; WHITE BLOOD COUNT 6.5 x10^3/uL (4.8-10.8)
[2017-01-26 06:04] LABS: BILIRUBIN,TOTAL 0.6 mg/dL (0.2-1.0); CALCIUM 7.8 mg/dL (8.5-10.3); CREATININE 0.8 mg/dL (0.6-1.2); POTASSIUM 3.7 mmol/L (3.5-5.0); TOTAL PROTEIN 5.6 g/dL (6.7-8.2)
[2017-01-26] MEDS: SODIUM CHLORIDE FLUSH 0.9% 10 ML SYRINGE IVP SCH ×2 (06:23→12:08)
[2017-01-26] MEDS ORDERED: CALCIUM GLUCONATE 1,000 MG in SODIUM CHLORIDE 0.9% 50 ML IV ONE (07:40)
[2017-01-26] MEDS: SACCHAROMYCES BOULARDII 250 MG CAPSULE PO SCH (07:41)
[2017-01-26] MEDS: CALCIUM CARBONATE CHEW 500 MG TABLET PO SCH (07:42)
[2017-01-26] MEDS: CHOLECALCIFEROL 1,000 UNIT TABLET PO SCH (07:43)
[2017-01-26] MEDS: ENOXAPARIN 40 MG/0.4 ML SYRINGE SUBQ SCH ×2 (07:43→07:53)
[2017-01-26] MEDS: OMEGA-3 ACID ETHYL ESTERS 1 GM CAPSULE PO SCH (07:44)
[2017-01-26] MEDS: LOSARTAN 50 MG TABLET PO SCH (07:44)
[2017-01-26] MEDS: FAMOTIDINE 20 MG TABLET PO SCH (07:44)
[2017-01-26] MEDS: POLYETHYLENE GLYCOL 3350 17 GM PACKET PO SCH ×3 (07:44→09:07)
[2017-01-26] MEDS: TAMSULOSIN 0.4 MG CAPSULE PO SCH (07:44)
[2017-01-26 08:26] VITALS: BP 165/87
[2017-01-26] MEDS: IPRATROPIUM/ALBUTEROL 3 ML NEB INH PRN (09:12)
[2017-01-26] MEDS ORDERED: SODIUM CHLORIDE 0.9% 1,000 ML IV SCH (11:05)
[2017-01-26] MEDS ORDERED: cloNIDine 0.1 MG TABLET PO PRN (11:06)
--- NOTE | 2017-01-26 12:51 | Discharge Plan ---
Discharge Plan Disposition: Home, Self Care Condition: Stable Prescriptions: oxyCODONE [Roxicodone] 5 mg PO Q4HR PRN #20 tablet PRN Reason: Pain 5 to 7 Levofloxacin [Levaquin] 500 mg PO DAILY #6 tablet Tamsulosin [Flomax] 0.4 mg PO DAILY #7 capsule Diet: Regular Activity Restrictions: Activity as Tolerated Shower Restrictions: No Weight Bearing: Full Weight Instruction Topics: Kidney Stones Risk, Kidney Stones, Kidney Stones Prevent, Pyelonephritis Dc, ED Stone Renal W Colic Additional Instructions or Follow Up instructions: May follow up PCP in one week, and follow up Dr. Marshall in two weeks Follow-Up Care: [facility] - Pulmonary, [facility] - Medical No Smoking: If you smoke, Please STOP! Call for help. Follow-up with: Vick Mann MD [Primary Care Provider] -
--- NOTE | 2017-01-26 13:49 | DISCHARGE SUMMARY ---
Discharge Summary Admit Date: 01/24/17 Discharge Date: 01/26/17 Discharging Provider: CARLSON Primary Care Provider: Vick Elizabeth Condition at Discharge: Stable Discharge Disposition: 01 Home, Self Care Discharge Facility Name: home - DIAGNOSES Admission Diagnoses: (1) Sepsis (2) Pyelonephritis (3) Ureteral stone (4) Hyponatremia (5) COPD (chronic obstructive pulmonary disease) (6) Hypertension (7) Alcohol abuse Discharge Diagnoses with Status of Each Condition: (1) Sepsis resolved (2) Pyelonephritis stable. no fever, chill, pain. continue antibiotics, follow up PCP and urologist management (3) Ureteral stone Pt report no pain and tenderness at left flank. pt report he feel he pass the stone nurse report small stone found in the urine (4) Hyponatremia resolved (5) COPD (chronic obstructive pulmonary disease) stable, chronic SOB per pt report (6) Hypertension stable, resume home meds (7) Alcohol abuse advised pt to cut down or avoid alcohol - HPI History of Present Illness: please refer from Dr. Jung's HPI on 01/25/17 as the following: Patient is a 66-year-old gentleman with a past medical history significant for 6 compression fractures with vertebral collapse secondary to osteoporosis, subclavian steal syndrome status post stenting, hypertension, obesity, peripheral arterial disease, Dupuytren's contracture in COPD who presents to the emergency department with a chief complaint of left flank pain. The patient states that he first noticed symptoms on Monday night which was 3 days ago. He states that initially he noticed that he was having increased urinary frequency. The patient later noticed that his urine was orange/reddish color but at that time he states he was having no pain at all. The patient states he continues to have increased urinary frequency throughout the next day but otherwise felt okay. The patient states that all of a sudden yesterday when he was standing up he felt a severe pain in the left flank. The patient states that the pain was a 10 out of 10 and lasted for several minutes. The patient states that he vomited twice and then tried to drink tons of fluid. The patient states that the pain initially decreased in intensity and then eventually resolved completely. The patient states he did not take any medications for the pain. The patient states that he was able to sleep at night and then this morning he felt okay. The patient states that just before lunch he again had this sudden onset of severe pain in the left flank. The patient states that he drank 42 ounces of water however today he noticed he was not urinating. The patient states that the pain waxed and waned throughout the rest of the day and would improve to as little as a 4 out of 10 but then would go back to a 10 out of 10 in intensity. The patient states that he began having sweats and felt very clammy he checked his temperature and it was normal. The patient states that he finally decided to come into the emergency department as the pain just was not subsiding. The patient states that on arrival to the emergency department he did have some chills and finally was able to make some urine after which he states that his pain did improve. Patient otherwise denies any headaches, blurred vision, runny nose, sore throat , nasal congestion, difficulty swallowing, chest pain, shortness of air, orthopnea, PND, increased lower extremity swelling, he currently denies any nausea, vomiting, diarrhea, constipation, he denies any joint swelling, muscle aches, neck stiffness, changes in his appetite, recent unintentional weight loss or focal neurologic deficits. On presentation to the emergency department the patient was afebrile however he was tachycardic with heart rate of 117 but his blood pressure was stable and he otherwise had no respiratory distress. The patient's lab work revealed a leukocytosis of 14.4 and a slight hyponatremia of 133. The patient did have an elevated lactic acid of 2.3 and the patient's urine revealed a large occult blood with trace leukocyte esterase positive RBCs and WBCs with calcium oxalate crystals and few bacteria. The patient underwent a CT angios of the abdomen and pelvis which revealed a mildly obstructing 5 x 3 mm proximal left ureteral stone. The emergency room physician spoke with an on-call urologist at [facility] by the name of Dr. Marshall. He recommended that the patient be kept at [facility] overnight and given 2 g of IV ceftriaxone every 24 hours, aggressive IV fluids at 200 mL's per hour, pain meds as needed and kept n.p.o. for possible surgery tomorrow. He also recommended a repeat CBC and lactate along with a BMP in the morning. He also asked that blood cultures and urine cultures be collected. He stated that if the patient became unstable or had worsening symptoms that he should be immediately paged overnight for possible transfer to [facility] he left his phone number which is [phone]. The patient was admitted to [facility]. - HOSPITAL COURSE Hospital Course: pt was found ureteral stone with fever, chill, severe flank pain. Pt was treated with Rocephin IV, IVF, and pain control. PT's clinic response is great. No fever, chill, lactic acid down to the normal, WBC at [facility]. Pt denies pain. Nurse found small stone at pt's urine. Pt report he felt his stone was passed. I called Dr. Marshall, urologist. Dr. Marshall recommend pt can be D/C today. - ALLERGIES Allergies/Adverse Reactions: Allergies Allergy/AdvReac Type Severity Reaction Status Date / Time No Known Drug Allergies Allergy Verified 01/24/17 14:57 - MEDICATIONS Home Medications: Ambulatory Orders Medication Instructions Recorded Confirmed Teriparatide [Forteo] 2.4 ml SQ DAILY 01/24/17 01/25/17 Calcium Carbonate/Vitamin D3 2 tab PO DAILY 01/25/17 01/25/17 [Calcium 600-Vit D3 400 Tablet] Cholecalciferol (Vitamin D3) 2,000 units PO DAILY 01/25/17 01/25/17 [Vitamin D3] Losartan [Cozaar] 50 mg PO DAILY 01/25/17 01/25/17 [place]-3 Acid Ethyl Esters [Lovaza] 1 gm PO DAILY 01/25/17 01/25/17 Levofloxacin [Levaquin] 500 mg PO DAILY #6 tablet 01/26/17 Tamsulosin [Flomax] 0.4 mg PO DAILY #7 capsule 01/26/17 oxyCODONE [Roxicodone] 5 mg PO Q4HR PRN #20 tablet 01/26/17 - PHYSICAL EXAM AT DISCHARGE General Appearance: positive: No acute distress, Alert. negative: Lethargic Eyes Bilateral: positive: Normal inspection, PERRL, EOMI, No lid inflammation, Conjunctivae nml ENT: positive: ENT inspection nml, Pharynx nml, No signs of dehydration. negative: Purulent nasal drainage, Pharyngeal erythema, Oral lesions, Dry mucous membranes Neck: positive: Nml inspection, Thyroid nml, No JVD, Trachea midline. negative : Thyromegaly, Lymphadenopathy (R), Lymphadenopathy (L), Stiff neck, Carotid bruit, Swelling/bruising, Tracheal deviation Respiratory: positive: Chest non-tender, No respiratory distress, Breath sounds nml. negative: Wheezes, Rales, Rhonchi Cardiovascular: positive: Regular rate & rhythm, No murmur, No gallop. negative : Irregularly irregular, Extrasystoles, Tachycardia, Bradycardia, Systolic murmur, Diastolic murmur Peripheral Pulses: positive: 2+ Abdomen: positive: Non-tender, No organomegaly, Nml bowel sounds, No distention. negative: Tenderness, Guarding, Rebound Back: positive: Nml inspection. negative: CVA tenderness (R), CVA tenderness (L ) Skin: positive: Color nml, No rash, Warm, Dry. negative: Cyanosis, Diaphoresis , Pallor, Skin rash Extremities: positive: Non-tender, Full ROM, Nml appearance, No pedal edema. negative: Pedal edema, Joint swelling, Selvin's sign/cords Neurologic/Psychiatric: positive: Oriented x3, Motor nml, Sensation nml, Mood/ affect nml. negative: Weakness, Sensory loss, Facial droop, Slurred/abnml speech, Depressed mood/affect - LABS Result Diagrams: 01/26/17 05:42 01/26/17 05:42 - FOLLOW UP Follow Up: pt is advised to follow up PCP in one week and follow up Dr. aMrshall in two weeks. Antibiotics, Flomax, and Oxycodon were prescribed to pt, per urologist Dr. Marshall recommend.
== END 2017-01-26 14:25 | disposition home or self-care (01) | DRG 872 ==
LOC: ED 14:20 → MS2 22:36
PROVIDERS: ADMIT Internal Medicine; ATTEND Nurse Practitioner Gerontology
DX: A41.9 Sepsis, unspecified organism (principal); R65.10 Systemic inflammatory response syndrome (SIRS) of non-infectious origin without acute organ dysfunction; N12 Tubulo-interstitial nephritis, not specified as acute or chronic; N20.2 Calculus of kidney with calculus of ureter; E87.1 Hypo-osmolality and hyponatremia; I10 Essential (primary) hypertension; J44.9 Chronic obstructive pulmonary disease, unspecified; F10.10 Alcohol abuse, uncomplicated; M81.0 Age-related osteoporosis without current pathological fracture; M81.8 Other osteoporosis without current pathological fracture; E66.9 Obesity, unspecified; Z68.31 Body mass index [BMI] 31.0-31.9, adult; I73.9 Peripheral vascular disease, unspecified; M72.0 Palmar fascial fibromatosis [Dupuytren]; Z95.828 Presence of other vascular implants and grafts; Z79.899 Other long term (current) drug therapy; Z86.73 Personal history of transient ischemic attack (TIA), and cerebral infarction without residual deficits; Z87.310 Personal history of (healed) osteoporosis fracture; Z87.891 Personal history of nicotine dependence; Z72.89 Other problems related to lifestyle
CPT/HCPCS: 36415; 51798; 74174; 80053; 81001; 81003; 83605; 83690; 85025; 87040; 87086; 94640; 99282; 99283

== ENCOUNTER 2017-04-18 12:47 | Inpatient (IN) | payer MEDICARE, OTHER ==
[~2017-04-18 12:47] MED LIST: ACETAMINOPHEN 1,000 MG/100 ML 100 ML IV ONE; HYDROmorphone 1 MG/ML SYRINGE IVP ONE; MIDAZOLAM 2 MG/2 ML VIAL IVP ONE; ONDANSETRON 4 MG/2 ML VIAL IVP ONE; PROPOFOL 200 MG/20 ML VIAL IVP ONE; ePHEDrine 50 MG/ML AMP IVP ONE; fentaNYL 100 MCG/2 ML VIAL IVP ONE
--- NOTE | 2017-04-18 14:05 | ED Physician Documentation ---
PD HPI LOWER EXT INJURY - Stated complaint Stated Complaint: FOOT INJURY - Chief complaint Chief Complaint: Ext Problem - History obtained from History obtained from: Patient - History of Present Illness PD HPI LOW EXT INJURY LOCATION: Right, Ankle Type of injury: Fall (he was walking across a field going home froma friends house and hurt right ankle. He does not remember the fall per se. He says he had been drinking with his friend.) Where injury occurred: Home, Other (field by his house.) Timing - onset: Last night (friend found him in the field. Roused with tactile stimulation and friend helped him to house and patient slept the rest of the night. Was lying in field likely about an hour or so. No chest pain, headache, altered mentation, nausea, vomiting this morning.) Timing - details: Abrupt onset, Still present Worsened by: Moving, Palpating Associated symptoms: Swelling. No: Weakness, Numbness Contributing factors: No: Anticoagulated Similar symptoms before: Has not had sx before Recently seen: Emergency Dept, Admitted (few weeks ago for infected ureteral stone.) Review of Systems Constitutional: denies: Fever, Chills Nose: denies: Rhinorrhea / runny nose, Congestion Throat: denies: Sore throat Cardiac: denies: Chest pain / pressure, Palpitations Respiratory: denies: Dyspnea, Cough GI: denies: Abdominal Pain, Nausea, Vomiting, Diarrhea Neurologic: reports: Generalized weakness (chronically, with prior back fracture and legs weakness. Cannot use crutches/walker due to weak arms as well. Usually able to ambulate on his own though.). denies: Focal weakness, Numbness, Altered mental status, Headache Psychiatric: denies: Depressed Endocrine: denies: Weight loss, Easy bruising / bleeding Immunocompromised: denies: Immunocompromised PD PAST MEDICAL HISTORY - Past Medical History Cardiovascular: Hypertension Respiratory: COPD Neuro: None Endocrine/Autoimmune: None GI: None : None HEENT: None Psych: None Musculoskeletal: Osteoporosis, Other Derm: None - Past Surgical History Past Surgical History: Yes Ortho: Spine surgery - Present Medications Home Medications: Ambulatory Orders Medication Instructions Recorded Confirmed Teriparatide [Forteo] 2.4 ml SUBQ DAILY 01/24/17 04/18/17 Cholecalciferol (Vitamin D3) 2,000 units PO DAILY 01/25/17 04/18/17 [Vitamin D3] Losartan [Cozaar] 50 mg PO DAILY 01/25/17 04/18/17 Tamsulosin [Flomax] 0.4 mg PO DAILY #7 capsule 01/26/17 04/18/17 Aspirin [Aspirin EC] 81 mg PO DAILY 04/18/17 04/18/17 Calcium Carbonate 1,200 mg PO DAILY 04/18/17 04/18/17 Turmeric Root Extract [Turmeric] 1,000 mg PO DAILY 04/18/17 04/18/17 - Allergies Allergies/Adverse Reactions: Allergies Allergy/AdvReac Type Severity Reaction Status Date / Time No Known Drug Allergies Allergy Verified 01/24/17 14:57 - Social History Does the pt smoke?: No Smoking Status: Never smoker Does the pt drink ETOH?: Yes Does the pt have substance abuse?: No - Immunizations Immunizations are current?: No - POLST Patient has POLST: No POLST Status: Full Code PD ED PE NORMAL - Vitals Vital signs reviewed: Yes - General General: Alert and oriented X 3, Well developed/nourished, Other (in pain due to ankle. ) - HEENT HEENT: Atraumatic, Ears normal, Moist mucous membranes, Pharynx benign - Neck Neck: Supple, no meningeal sign, No adenopathy - Cardiac Cardiac: RRR (tachycardic but regular), No murmur - Respiratory Respiratory: Clear bilaterally, Other (no chestwall tenderness) - Abdomen Abdomen: Normal bowel sounds, Soft, Non tender, Non distended - Male Male : Deferred - Rectal Rectal: Deferred - Back Back: No CVA TTP, No spinal TTP - Derm Derm: Normal color. No: Warm and dry (slightly cool skin) - Extremities Extremities: Other (right ankle with some swelling and ecchymosis. Normal color and cap refill in toes. He has sensation in toes. Weak movement due to ankle pain. ) - Neuro Neuro: Alert and oriented X 3, Other (Needs help with getting from car to wheelchair and from chair to bed. General weakness. ) Eye Opening: Spontaneous Motor: Obeys Commands - Psych Psych: Normal mood Results - Vitals Vitals: Oxygen O2 Source Room air - Labs Labs: Laboratory Tests 04/18/17 04/18/17 14:40 14:40 WBC 13.5 H RBC 4.20 L Hgb 15.4 Hct 44.2 MCV 105.2 H MCH 36.7 H MCHC 34.9 RDW 14.0 Plt Count 253 MPV 7.5 Neut # 11.0 H Lymph # 1.4 L Lucas # 1.1 H Eos # 0.0 Baso # 0.1 Absolute Nucleated RBC 0.01 Nucleated RBC % 0.1 Sodium 137 Potassium 4.9 Chloride 98 L Carbon Dioxide 23 Anion Gap 16.0 H BUN 11 Creatinine 1.0 Estimated GFR (MDRD) 75 L Glucose 119 H Calcium 9.1 Magnesium 1.6 L Total Bilirubin 1.2 H AST 53 H ALT 49 Alkaline Phosphatase 49 Total Creatine Kinase 252 Total Protein 7.7 Albumin 4.2 Globulin 3.5 Albumin/Globulin Ratio 1.2 Lipase 19 L Ethyl Alcohol < 5.0 - Rads (name of study) right ankle Radiology: Prelim report reviewed (right trimalleolar fracture with posterior dislocation), EMP read contemporaneously Procedures - Reduction Body part reduced: Right, Ankle Fracture or dislocation: Fracture dislocation Anesthesia: Conscious sedation, Dilaudid Reduction aftercare: NV intact, Xray confirms reduction, Alignment improved, Splint applied, Patient tolerated well PD MEDICAL DECISION MAKING - ED course Complexity details: reviewed old records, reviewed results, d/w patient, d/w pmo consultant (Dr. Stephens, Ortho, and Dr. Higgins, Hospitalist) Departure - Departure Disposition: 66 [facility] DC/Xfer Clinical Impression: Generalized muscle weakness Trimalleolar fracture of ankle, closed Qualifiers: Encounter type: initial encounter Laterality: right Qualified Code(s): S82.851A - Displaced trimalleolar fracture of right lower leg, initial encounter for closed fracture Episode of syncope Qualifiers: Syncope type: unspecified Qualified Code(s): R55 - Syncope and collapse Condition: Stable Record reviewed to determine appropriate education?: Yes Discharge Date/Time: 04/18/17 19:45
--- NOTE | 2017-04-18 14:10 | XRAY Report ---
EXAM: RIGHT ANKLE RADIOGRAPHY EXAM DATE: 04/18/2017 01:32 PM. CLINICAL HISTORY: Injury. COMPARISON: None. TECHNIQUE: 3 views. FINDINGS: Bones: Oblique distal fibular fracture with up to 7 mm lateral displacement. Medial malleolus fractur e demonstrates up to 10 mm lateral displacement of the distal fragment. Joints: Lateral posterior subluxation of the talus relative to the tibia. There is medial talar tilt. Probable tibiotalar effusion. Soft Tissues: Prominent soft tissue swelling. IMPRESSION: Displaced medial and lateral malleolar fractures with tibiotalar subluxation. [facility] Referring Provider Line: [phone] SITE ID: [id number]
[2017-04-18] MEDS ORDERED: SODIUM CHLORIDE 0.9% 1,000 ML IV ONE (14:28)
[2017-04-18] MEDS ORDERED: HYDROmorphone 1 MG/ML SYRINGE IVP STA ×2 (14:28→15:34)
[2017-04-18 14:50] LABS: BASOPHILS # (AUTO) 0.1 10^3/uL (0.0-0.1); BASOPHILS % (AUTO) 0.4 %; EOSINOPHILS % (AUTO) 0.1 %; HGB - HEMOGLOBIN 15.4 g/dL (14.0-18.0); LYMPHOCYTES # (AUTO) 1.4 10^3/uL (1.5-3.5); MEAN CORPUSCULAR HEMOGLOBIN 36.7 pg (27.0-31.0); MEAN CORPUSCULAR HGB CONC 34.9 g/dL (32.0-36.0); MEAN CORPUSCULAR VOLUME 105.2 fL (80.0-94.0); MEAN PLATELET VOLUME 7.5 fL (7.4-11.4); MONOCYTES # (AUTO) 1.1 10^3/uL (0.0-1.0); MONOCYTES % (AUTO) 7.9 %; NEUTROPHILS % (AUTO) 81.6 %; PLT - PLATELET COUNT 253 10^3/uL (130-450); WHITE BLOOD COUNT 13.5 x10^3/uL (4.8-10.8)
[2017-04-18 15:07] LABS: ALBUMIN 4.2 g/dL (3.2-5.5); ALBUMIN/GLOBULIN RATIO 1.2 (1.0-2.2); ALKALINE PHOSPHATASE 49 IU/L (42-121); ALT ALANINE AMINOTRANSFERASE 49 IU/L (10-60); AST ASPARTATE AMINOTRANSFERASE 53 IU/L (10-42); BILIRUBIN,TOTAL 1.2 mg/dL (0.2-1.0); BUN - BLOOD UREA NITROGEN 11 mg/dL (6-20); CALCIUM 9.1 mg/dL (8.5-10.3); CARBON DIOXIDE - CO2 23 mmol/L (21-32); CHLORIDE 98 mmol/L (101-111); CK- CREATINE KINASE 252 IU/L (22-269); GFR - MDRD 75 (>89); GLUCOSE 119 mg/dL (70-100); LIPASE 19 U/L (22-51); MAGNESIUM 1.6 mg/dL (1.7-2.8); SODIUM 137 mmol/L (135-145); TOTAL PROTEIN 7.7 g/dL (6.7-8.2)
[2017-04-18] MEDS ORDERED: PROPOFOL 200 MG/20 ML VIAL IVP STA (15:34)
--- NOTE | 2017-04-18 16:59 | XRAY Preliminary Report ---
Exam: XR ANKLE 2 VIEW RT IMPRESSION: Markedly improved anatomic alignment. [facility] SITE ID: [id number]
--- NOTE | 2017-04-18 17:06 | XRAY Report ---
EXAM: RIGHT ANKLE RADIOGRAPHY EXAM DATE: 04/18/2017 04:39 PM. CLINICAL HISTORY: Trimalleolar fracture-dislocation. Post reduction. COMPARISON: Earlier today at 1314. TECHNIQUE: 2 views. FINDINGS: Bones: Trimalleolar fractures. Joints: Interval reduction such that the fracture fragments are now in close apposition, maximum dist raction of 3 mm. Epicenter of the distal tibia corresponds to the epicenter of the talar dome. Soft Tissues: Marked diffuse edema. Interval casting. IMPRESSION: Markedly improved anatomic alignment. [facility] Referring Provider Line: [phone] SITE ID: [id number]
[2017-04-18] MEDS ORDERED: ACETAMINOPHEN 325 MG TABLET PO PRN (18:37)
[2017-04-18] MEDS ORDERED: ONDANSETRON 4 MG/2 ML VIAL IVP PRN (18:37)
[2017-04-18] MEDS ORDERED: SODIUM CHLORIDE FLUSH 0.9% 10 ML SYRINGE IVP PRN (18:37)
--- NOTE | 2017-04-18 18:43 | HISTORY & PHYSICAL EXAMINATION ---
Chief Complaint - Chief Complaint Chief Complaint: fall, trimalleolar fracture History of Present Illness - Admitted From Admitted From:: ER - History Obtained From History obtained from: pt - History of Present Illness HPI Comment/Other: Mr. Castro is 67-year-old male with a past medical history significant for COPD, HTN, Ostoporosis, kidney stone, who present ER for evaluation of fall. Pt report he drunk "lots of alcohol" at his friend home. Then he left his friend home around 10:30 om with head fresh light. His friend found his around 1am today morning in outside [place] because his friend saw a light on the outside field. He did not remember how him to fall in the outside field but it was so painful and he can not walk. Xray reveals displaced medial and lateral malleolar fracture with tibiotalar subluxation. Lab test reveal slight elevated WBC, otherwise unremarkable. Pt denies chest pain, shortness, cough, fever, chill, abdominal pain, nausea, vomiting, diarrhea, headache, vision change. Pt denies other injuries. History - Past Medical History Cardiovascular: reports: Hypertension Respiratory: reports: COPD Neuro: reports: None Endocrine/Autoimmune: reports: None GI: reports: None : reports: None HEENT: reports: None Psych: reports: None Musculoskeletal: reports: Osteoporosis, Other Derm: reports: None - Past Surgical History Ortho: reports: Spine surgery - Family & Social History Family History Comment/Other: pt is living alone at [facility]. Living arrangement: At home Living Situation: Alone Social History Notes: Patient lives on [facility] alone. He is a retired teacher. He moved to [facility] in 1992. 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 The patient has a history of tobacco abuse. The patient previously smoked 4 packs per day for over 30 years and quit about 10 years ago. The patient does drink alcohol he drinks 5-6 glasses of wine daily and he does use cannabis oil. - Substance History Use: Uses substance without health or social issues: NONE Abuse: Recurrent use of substance despite neg consequences: NONE Dependence: Experiences withdrawal or developed tolerances: NONE - POLST Patient has POLST: No POLST Status: DNR Meds/Allgy - Home Medications Home Medications: Ambulatory Orders Medication Instructions Recorded Confirmed Teriparatide [Forteo] 2.4 ml SUBQ DAILY 01/24/17 04/18/17 Cholecalciferol (Vitamin D3) 2,000 units PO DAILY 01/25/17 04/18/17 [Vitamin D3] Losartan [Cozaar] 50 mg PO DAILY 01/25/17 04/18/17 Tamsulosin [Flomax] 0.4 mg PO DAILY #7 capsule 01/26/17 04/18/17 Aspirin [Aspirin EC] 81 mg PO DAILY 04/18/17 04/18/17 Calcium Carbonate 1,200 mg PO DAILY 04/18/17 04/18/17 Turmeric Root Extract [Turmeric] 1,000 mg PO DAILY 04/18/17 04/18/17 - Allergies Allergies/Adverse Reactions: Allergies Allergy/AdvReac Type Severity Reaction Status Date / Time No Known Drug Allergies Allergy Verified 01/24/17 14:57 Review of Systems - Constitutional Constitutional: denies: Fatigue, Fever, Chills, Malaise, Weakness, Poor appetite , Diaphoresis, Night sweats - Eyes Eyes: denies: Pain, Irritation, Amaurosis, Blurred vision, Spots in vision, Field loss, Vision loss, Dipolpia - Ears, Nose & Throat Ears, Nose & Throat: denies: Ear pain, Hearing loss, Hearing aids, Tinnitus, Vertigo, Nasal pain, Nasal discharge, Nosebleeds, Nasal obstruction, Nasal congestion, Postnasal drainage, Dentures, Sore throat, Mouth lesions, Bleeding gums - Cardiovascular Cariovascular: denies: Irregular heart rate, Palpitations, Chest pain, Edema, Lightheadedness, Syncope, Exertional dyspnea, Decr. exercise tolerance - Respiratory Respiratory: denies: Cough, Sputum production, Wheezing, Snoring, Hemoptysis, Orthopnea, SOB at rest, SOB with exertion - Gastrointestinal Gastrointestinal: denies: Abdominal pain, Abdominal distention, Constipation, Diarrhea, Change in bowel habits, Black stools, Bloody stools, Nausea, Vomiting , Bile emesis, Timothy blood emesis, Coffee grounds emesis, Reflux/heartburn - Genitourinary Genitourinary: denies: Dysuria, Frequency, Urgency, Hematuria, Incontinence, Flank pain, Nocturia, Urethral discharge - Musculoskeletal Musculoskeletal: reports: Limited range of motion, Joint pain, Joint swelling. denies: Muscle pain, Back pain, Muscle aches, Stiffness, Muscle weakness, Gout - Integumentary Integumentary: denies: Rash, Pruritis, Lesions, Dryness, Lumps, Acne, Pigment changes, Nail changes - Neurological Neurological: denies: General weakness, Focal weakness, Headache, Dizziness, Numbness, Memory problems, Pre-existing deficit, Abnormal gait, Seizures, Incoordination, Slurred speech - Psychiatric Psychiatric: denies: Depression, Anxiety, Suicidal, Delusions, Hallucinations, Homicidal - Endocrine Endocrine: denies: Polyuria, Polydypsia, Polyphagia, Intolerance to cold, Intolerance to heat - Hematologic/Lymphatic Hematologic/Lymphatic: denies: Anemia, Bruising, Petechiae, Blood clots, Lymphadenopathy, Bleeding tendencies Exam - Vital Signs Reviewed Vital Signs: Yes Vital Signs: Vital Signs x48h Temp Pulse Resp BP Pulse Ox 04/18/17 17:24 96 12 130/79 100 04/18/17 16:34 102 H 18 168/130 H 98 04/18/17 16:22 99 18 149/83 H 98 04/18/17 16:15 96 19 150/83 H 98 04/18/17 16:13 96 20 152/86 H 94 04/18/17 16:09 100 17 153/88 H 95 04/18/17 15:14 117 H 17 131/79 H 97 04/18/17 12:51 35.5 C L 120 H 18 144/82 H - Physical Exam General Appearance: positive: No acute distress, Alert. negative: Lethargic Eyes Bilateral: positive: Normal inspection, PERRL, No lid inflammation, Conjunctivae nml ENT: positive: ENT inspection nml, Pharynx nml, No signs of dehydration. negative: Purulent nasal drainage, Pharyngeal erythema, Oral lesions Neck: positive: Nml inspection, Thyroid nml, No JVD, Trachea midline. negative : Thyromegaly, Lymphadenopathy (R), Lymphadenopathy (L), Stiff neck, Carotid bruit, Swelling/bruising, Tracheal deviation Respiratory: positive: Chest non-tender, No respiratory distress, Breath sounds nml. negative: Wheezes, Rales, Rhonchi Cardiovascular: positive: Regular rate & rhythm, No murmur, No gallop. negative : Irregularly irregular, Extrasystoles, Tachycardia, Bradycardia, Systolic murmur, Diastolic murmur Peripheral Pulses: positive: 2+ Abdomen: positive: Non-tender, No organomegaly, Nml bowel sounds, No distention. negative: Tenderness, Guarding, Rebound Back: positive: Nml inspection. negative: CVA tenderness (R), CVA tenderness (L ) Skin: positive: Color nml, No rash, Warm, Dry. negative: Cyanosis, Diaphoresis , Pallor Extremities: positive: Non-tender. negative: Full ROM, Calf tenderness, Joint swelling, Selvin's sign/cords Neurologic/Psychiatric: positive: Oriented x3, Sensation nml, Mood/affect nml. negative: Sensory loss, Facial droop, Slurred/abnml speech, Depressed mood/ affect Conclusion/Plan - Problem List (1) Trimalleolar fracture Conclusion/Plan: consult with Orthopedics. Pre-surgery cardiac risk assessment is lower. surgery tonight pain control NPO tonight IVF follow up surgeon (2) HTN (hypertension) Conclusion/Plan: stable, resume home Losartan vital monitor (3) Osteoporosis Conclusion/Plan: pt with hx if ostoporosis resume home meds (4) History of COPD Conclusion/Plan: stable, Duoneb PRN O2 supplement PRN (5) DVT prophylaxis Conclusion/Plan: pt has fracture at [facility] (6) Do not intubate, cardiopulmonary resuscitation (CPR)-only code status Conclusion/Plan: pt clearly request DNR - Lab Results Fish Bones: 04/18/17 14:40 04/18/17 14:40 Core Measures - Anticipated LOS I expect patient to be DC'd or transferred within 96 hours.: Yes - DVT/VTE - Prophylaxis VTE/DVT Device ordered at admit?: No VTE/DVT Prophylaxis med ordered at admit?: Yes - Stroke - Rehab Assessment Rehab services assessment to be ordered?: No - AMI - Statin at Admit Aspirin Prescribed on Admit: No
[2017-04-18] MEDS ORDERED: LACTATED RINGERS 1,000 ML IV ONE ×2 (19:50→21:00)
[2017-04-18] MEDS ORDERED: ceFAZolin 2 GM/50 ML 2 GM/50 ML BAG IV ONE (19:52)
--- NOTE | 2017-04-18 20:03 | CONSULTATION NOTE ---
DATE OF SERVICE: 04/18/2017 Physician: Kevan Carlson MD HISTORY OF PRESENT ILLNESS: Consult from the emergency physician: This 67-year- old man is admitted through the emergency room where I saw him for a fractured right ankle. He was in his usual state of somewhat poor health when last night, walking through a field, he thinks he stepped in a hole. He does not recall the fall. He fell forward, striking his face. He did not realize he had done that until he was back to his house and found mud on his face. He does not actually recall the fall. When he noticed himself, he was having very severe pain in his leg. He noticed he could not walk on it. He proceeded to crawl to his house and did not get help until this morning. He was seen in the emergency room with a posterior fracture dislocation, trimalleolar type. This was reduced in the emergency room under sedation. The patient has a preexisting problem with severe weakness in his legs, resulting in difficulty walking. He sometimes uses assistive devices. He lives in a house with a bedroom and all living areas on the 2nd floor, 18 steps up. On the ground floor is the bathroom and no heat. He has had a problem with severe thoracic kyphosis due to some collapse of vertebrae. PAST MEDICAL HISTORY 1. He has a history of smoking but quit 10 years ago. 2. He has intermittent lung problems. 3. He had a subclavian steal syndrome fixed with a stent. ALLERGIES: HE IS ALLERGIC TO PENICILLIN. MEDICATIONS 1. He takes a number of medications on a regular basis. 2. He is not taking Plavix. 3. He does get 40 mg enoxaparin subcu daily. SOCIAL HISTORY: He lives alone. 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 PHYSICAL EXAMINATION GENERAL: He is a pleasant enough man with nasal O2. He has no pallor. EXTREMITIES: In the upper extremities, there is no sign of trauma. In the right lower extremity, he is in a posterior fiberglass ankle splint. His toes are mildly swollen. He has good capillary refill. He has normal sensation in the toes. X-RAYS: Radiographs when he came to the emergency room show a posterolateral fracture dislocation of the ankle with a medial malleolar fragment sheared off at the level of the plafond, the usual long oblique fibular fragment, and a small posterior malleolar fragment. After reduction, there is good general reduction but slight lateral displacement of the talus under the tibia. He appears to have osteopenia or osteoporosis. IMPRESSION: Closed right trimalleolar fracture of the ankle. This is an unstable pattern. I think he needs to have open reduction, internal fixation. We can proceed with this tonight. If not tonight, it will not be until tomorrow evening for surgery, and he will be no better off waiting for a day. I have explained the procedure to him, for plates and screws to hold his ankle together. He will be able to do some weightbearing fairly early on the ankle once it is fixed. He had no further questions and signed the consent in my presence. He is going to be fully evaluated by the director business travel. TD: 04/18/2017 20:02 [email or web address]
[2017-04-18] MEDS ORDERED: BUPIVACAINE 0.25% PF 30 ML VIAL SUBQ ONE ×2 (20:35)
--- NOTE | 2017-04-18 22:26 | OPERATIVE REPORT ---
Operative Report - General Admit Date: 04/18/17 Procedure Date: 04/18/17 Planned Procedure: ORIF Right Trimalleolar fracture Pre-Op Diagnosis: Closed Trimalleolar fracture-dislocation,right Procedure Performed: ORIF Right ankle trimalleolar fracture without fixation of posterior lip. Post Op Diagnosis: same - Procedure Note Primary Surgeon: Robyn BROOKE Secondary Surgeon: susy Anesthesia Provider: Tee Haider CRNA Anesthesia Technique: General LMA Estimated Blood Loss (mL): 5 Complications: none
--- NOTE | 2017-04-18 22:41 | XRAY Preliminary Report ---
Exam: XR ANKLE 3 VIEW RT IMPRESSION: Operative fixation of a trimalleolar fracture. Anatomic alignment achieved. [facility] SITE ID: [id number]
[2017-04-18] MEDS: HYDROmorphone 1 MG/ML SYRINGE ONE ×2 (22:45→22:53)
[2017-04-19] MEDS: SODIUM CHLORIDE 0.9% 1,000 ML IV SCH ×3 (00:51→11:34)
[2017-04-19] MEDS: SODIUM CHLORIDE FLUSH 0.9% 10 ML SYRINGE IVP SCH ×4 (00:51→20:19)
[2017-04-19] MEDS: THIAMINE 100 MG TABLET PO SCH ×2 (00:54→10:08)
[2017-04-19] MEDS: FOLIC ACID 1 MG TABLET PO SCH ×2 (00:54→10:09)
--- NOTE | 2017-04-19 02:10 | XRAY Report ---
EXAM: RIGHT ANKLE RADIOGRAPHY EXAM DATE: 04/18/2017 10:06 PM. CLINICAL HISTORY: Right ankle fracture. COMPARISON: 04/18/2017. TECHNIQUE: 3 views. FINDINGS: 3 fluoroscopic images demonstrate placement of a lateral plate and screw device stabilizing a distal right fibular fracture and screws stabilizing a medial malleolar fracture. Posterior malleo lar fracture noted without hardware. Anatomic alignment achieved. 53 seconds of fluoroscopic imaging time. IMPRESSION: Operative fixation of a trimalleolar fracture. Anatomic alignment achieved. [facility] Referring Provider Line: [phone] SITE ID: [id number]
--- NOTE | 2017-04-19 03:51 | OPERATIVE REPORT ---
DATE OF SERVICE: 04/18/2017 Physician: Kevan Carlson MD DATE OF SURGERY: 04/18/2017 PREOPERATIVE DIAGNOSIS: Closed right ankle trimalleolar fracture dislocation. POSTOPERATIVE DIAGNOSIS: Closed right ankle trimalleolar fracture dislocation. NAME OF PROCEDURE: Right ankle open reduction and internal fixation of trimalleolar fracture without fixation of posterior lip. SURGEON: Kevan Carlson MD ANESTHESIA: General LMA. INSPECTOR RAG SORTING: None. ANESTHESIOLOGIST: TATI Haider INDICATIONS: This man had, about 24 hours earlier, fallen in a field with the above-mentioned injury. He had to drag himself back to the house and wait for someone to help bring him to the hospital. His dislocation was reduced in the emergency room. He obviously had an unstable pattern. PROCEDURE: The patient was brought into the operating room and placed under adequate general anesthesia. The right lower extremity was prepped and sterilely draped in usual fashion. A timeout was held to identify the patient, site and procedure. A tourniquet was then inflated to 300 mmHg for a total of 97 minutes. The C-arm fluoroscope was available for excellent radiographs throughout the procedure. Initially, the medial side was approached. A short longitudinal incision was made just at and distal to the tip of the medial malleolus. Palpably, the malleolus was well reduced with a pressure pad behind the heel. Fluoroscopy was used to select start point and guide the 2.5 mm drill through the malleolar fragment up into the metaphysis. A 40 mm partially threaded 4.0 cancellous screw was then utilized. It was tight going to the malleolar fragment, as expected. However, once it was through that cortex, the screw simply plunged into what seemed to be very empty metaphyseal bone. This was, therefore, removed. It was replaced with a 60 mm fully threaded 4.0 cancellous screw. This got excellent purchase proximally. The fragment was well reduced and seemed fairly stable, although with slight rotational instability. A 2.5 mm drill was then driven in more posteriorly on the medial malleolar fragment. A 3.5 was used to open up the cortex. A 50 mm partially threaded 4.0 cancellous screw was then placed in. This had a good lag effect. The initial screw was then backed all the way out until it was just in the fragment. The second screw was then tightened a bit. The long fully threaded screw was then placed back in, obtaining a great purchase in the fragment, holding it well apposed with no motion possible. Attention was then directed to the lateral aspect. A longitudinal incision was made over the area of the fibula from the fracture proximally for several centimeters. A second incision of about a centimeter long was placed more towards the tip of the medial malleolus. Hemorrhagic tissue was encountered and spread down to the periosteum which was divided, giving good access to the bone. Fracture line was easily seen. The wound was irrigated with normal saline. A bone clamp was gotten in. A [place] was placed into the slot of the fracture. It was then turned, forcing the distal fragment more distally, and the clamp was tightened holding an anatomic reduction. On fluoroscopy, the fracture line was no longer visible. A 7-hole, 3.5 semitubular plate from the [employer] locking set was then selected. The distal end of this was bent some to conform to the shape of the patient's lateral malleolus. Through the most distal incision, the plate was then slid proximally in a retrograde fashion. This was then brought up to the desired position and a blocking screw was then placed in the third hole from the bottom. A second locking screw was then placed proximal to the fracture. Additional 2 screws were placed both in the distal portion and the proximal portion. One screw hole was not filled due to its being over the fracture itself. Excellent stability was achieved. Normal saline was used to wash through the wound. The medial wound was then closed with a 3-0 PDS subcutaneous stitch, followed by a running subcuticular 3-0 PDS suture. The lateral wound was then irrigated with normal saline. The wounds there were closed with some subcutaneous inverted 3-0 PDS sutures, followed by a running 3-0 PDS subcuticular stitch reinforced with Steri-Strips. Sterile bandage was applied. A fiberglass cast was applied. This was split to create a splint. Portals for accessing the wound were created. The patient was then awakened, extubated, and taken to the recovery room in good condition, having tolerated the procedure well, with perhaps 5 mL blood loss. TD: 04/19/2017 03:50
[2017-04-19] MEDS: HYDROcod/ACETAM 5/325 MG TABLET PO PRN ×3 (03:57→17:06)
[2017-04-19] MEDS: ceFAZolin 2 GM/50 ML 2 GM/50 ML BAG IV SCH ×2 (04:02→12:43)
[2017-04-19 05:33] LABS: BASOPHILS # (AUTO) 0.1 10^3/uL (0.0-0.1); EOSINOPHILS % (AUTO) 0.5 %; LYMPHOCYTES # (AUTO) 1.6 10^3/uL (1.5-3.5); LYMPHOCYTES % (AUTO) 20.6 %; MEAN CORPUSCULAR HEMOGLOBIN 36.5 pg (27.0-31.0); MEAN CORPUSCULAR HGB CONC 34.5 g/dL (32.0-36.0); MEAN CORPUSCULAR VOLUME 105.7 fL (80.0-94.0); MEAN PLATELET VOLUME 7.4 fL (7.4-11.4); MONOCYTES # (AUTO) 0.7 10^3/uL (0.0-1.0); MONOCYTES % (AUTO) 9.2 %; NEUTROPHILS # (AUTO) 5.3 10^3/uL (1.5-6.6); NEUTROPHILS % (AUTO) 68.7 %; PLT - PLATELET COUNT 191 10^3/uL (130-450); RED CELL DISTRIBUTION WIDTH 14.1 % (12.0-15.0); WHITE BLOOD COUNT 7.8 x10^3/uL (4.8-10.8)
[2017-04-19 05:46] LABS: ALBUMIN 3.1 g/dL (3.2-5.5); ALBUMIN/GLOBULIN RATIO 1.2 (1.0-2.2); BILIRUBIN,TOTAL 0.5 mg/dL (0.2-1.0); CALCIUM 7.7 mg/dL (8.5-10.3); MAGNESIUM 1.5 mg/dL (1.7-2.8); TOTAL PROTEIN 5.7 g/dL (6.7-8.2)
[2017-04-19] MEDS ORDERED: DOCUSATE SODIUM 250 MG CAPSULE PO SCH (09:00)
[2017-04-19] MEDS ORDERED: SENNA 8.6 MG TABLET PO SCH (09:00)
[2017-04-19] MEDS: HYDROmorphone 1 MG/ML SYRINGE IVP PRN (09:51)
[2017-04-19] MEDS: CALCIUM CARB (OYSTER SHELL) 500 MG TABLET PO SCH (10:07)
[2017-04-19] MEDS: TAMSULOSIN 0.4 MG CAPSULE PO SCH (10:08)
[2017-04-19] MEDS: LOSARTAN 50 MG TABLET PO SCH (10:08)
[2017-04-19] MEDS: CHOLECALCIFEROL 1,000 UNIT TABLET PO SCH (10:08)
[2017-04-19] MEDS: FAMOTIDINE 20 MG TABLET PO SCH (10:08)
[2017-04-19] MEDS: ASPIRIN EC 81 MG TABLET PO SCH (10:08)
[2017-04-19] MEDS: ENOXAPARIN 40 MG/0.4 ML SYRINGE SUBQ SCH (10:09)
[2017-04-19] MEDS: TERIPARATIDE SUBQ SCH (11:26)
[2017-04-19] MEDS: POLYETHYLENE GLYCOL 3350 17 GM PACKET PO SCH (11:34)
[2017-04-19] MEDS: KETOROLAC 15 MG/ML VIAL IVP PRN ×2 (11:35→20:18)
[2017-04-19] MEDS ORDERED: KETOROLAC 30 MG/ML VIAL ONE (11:36)
[2017-04-19 12:14] LABS: BILIRUBIN,URINE NEGATIVE (NEGATIVE); GLUCOSE, URINE (UA) NEGATIVE (NEGATIVE); KETONES,URINE (UA) NEGATIVE (NEGATIVE); LEUKOCYTE ESTERASE, URINE NEGATIVE (NEGATIVE); NITRITE,URINE NEGATIVE (NEGATIVE); OCCULT BLOOD,URINE NEGATIVE (NEGATIVE); PROTEIN,URINE NEGATIVE (NEGATIVE); UROBILINOGEN,URINE 0.2 (NORMAL) E.U./dL (NORMAL)
[2017-04-19 12:16] LABS: CLARITY,URINE CLEAR (CLEAR)
--- NOTE | 2017-04-19 14:47 | PROVIDER PROGRESS NOTE ---
Subjective - Prog Note Date Prog Note Date: 04/19/17 - Subjective Pt reports feeling: Improved Subjective: pt state he feel better. Pt report he still feel very pain when he tries to move and bear his ankle. Denies chest pain, fever, chill, cough, shortness of breath. Current Medications - Current Medications Current Medications: Active Medications Acetaminophen (Tylenol) 650 mg PO Q4HR PRN PRN Reason: Pain 1 to 4 Acetaminophen/Hydrocodone Bitart ([place] 5/325) 1 tab PO Q4HR PRN PRN Reason: Pain 5 to 7 Last Admin: 04/19/17 08:01 Dose: 1 tab Aspirin (Ecotrin) 81 mg PO DAILY [facility] Last Admin: 04/19/17 10:08 Dose: 81 mg Calcium Carbonate/Glycine (Oysco-500) 1,000 mg PO DAILY [facility] Last Admin: 04/19/17 10:07 Dose: 1,000 mg Cholecalciferol (Vitamin D3) 2,000 unit PO DAILY [facility] Last Admin: 04/19/17 10:08 Dose: 2,000 unit Enoxaparin Sodium (Lovenox) 40 mg SUBQ DAILY [facility] Last Admin: 04/19/17 10:09 Dose: 40 mg Famotidine (Pepcid) 20 mg PO DAILY [facility] Last Admin: 04/19/17 10:08 Dose: 20 mg Folic Acid () 1 mg PO DAILY [facility] Last Admin: 04/19/17 10:09 Dose: 1 mg Hydromorphone HCl (Dilaudid Inj Syringe) 0.5 mg IVP Q2H PRN PRN Reason: Pain 8 to 10 Last Admin: 04/19/17 09:51 Dose: 0.5 mg Sodium Chloride (Normal Saline 0.9%) 1,000 mls @ 75 mls/hr IV .[id number] [facility] Last Infusion: 04/19/17 13:15 Dose: 75 mls/hr Ketorolac Tromethamine (Toradol Inj) 15 mg IVP Q6HR PRN PRN Reason: PAIN Stop: 04/24/17 11:18 Last Admin: 04/19/17 11:35 Dose: 15 mg Losartan Potassium (Cozaar) 50 mg PO DAILY [facility] Last Admin: 04/19/17 10:08 Dose: 50 mg Ondansetron HCl (Zofran Inj) 4 mg IVP Q6HR PRN PRN Reason: Nausea / Vomiting Non Formulary Med ( Teriparatide [Forteo ] 2.4 Ml) 1 each SUBQ DAILY [facility] Last Admin: 04/19/17 11:26 Dose: Not Given Polyethylene Glycol (Miralax) 17 gm PO DAILY [facility] Last Admin: 04/19/17 11:34 Dose: 17 gm Sodium Chloride (Normal Saline Flush 0.9%) 10 ml IVP PRN PRN PRN Reason: NEEDED PER PROVIDER ORDERS Sodium Chloride (Normal Saline Flush 0.9%) 10 ml IVP Q8HR [facility] Last Admin: 04/19/17 11:47 Dose: Not Given Tamsulosin HCl (Flomax) 0.4 mg PO DAILY [facility] Last Admin: 04/19/17 10:08 Dose: 0.4 mg Thiamine HCl (Vitamin B-1) 100 mg PO DAILY [facility] Last Admin: 04/19/17 10:08 Dose: 100 mg Teriparatide [Forteo] 2.4 ml SUBQ DAILY 01/24/17 Cholecalciferol (Vitamin D3) [Vitamin D3] 2,000 units PO DAILY 01/25/17 Losartan [Cozaar] 50 mg PO DAILY 01/25/17 Aspirin [Aspirin EC] 81 mg PO DAILY 04/18/17 Calcium Carbonate 1,200 mg PO DAILY 04/18/17 Turmeric Root Extract [Turmeric] 1,000 mg PO DAILY 04/18/17 Objective - Vital Signs/Intake & Output Reviewed Vital Signs: Yes Vital Signs: Vital Signs x48h Temp Pulse Pulse Pulse Pulse Resp BP 04/19/17 14:09 37.2 C 98 18 04/19/17 12:50 116 H 113 H 107 H 133/72 H 04/19/17 12:49 119 H 114 H 86 133/72 H 04/19/17 12:47 37.9 C H 04/19/17 07:24 37.3 C 100 18 BP BP BP Pulse Ox 04/19/17 14:09 109/58 L 97 04/19/17 12:50 123/55 L 126/75 04/19/17 12:49 123/55 L 126/75 04/19/17 12:47 04/19/17 07:24 127/59 L 99 Intake & Output: Intake & Output 04/16/17 04/17/17 04/18/17 02/07/18 23:59 23:59 23:59 23:59 Intake Total 1845.833 Output Total 750 Balance 1095.833 - Objective General Appearance: positive: No acute distress, Alert. negative: Lethargic Eyes Bilateral: positive: Normal inspection, PERRL, No lid inflammation, Conjunctivae nml ENT: positive: ENT inspection nml, Pharynx nml, No signs of dehydration. negative: Purulent nasal drainage, Pharyngeal erythema, Oral lesions Neck: positive: Nml inspection, Thyroid nml, No JVD, Trachea midline. negative : Thyromegaly, Lymphadenopathy (R), Lymphadenopathy (L), Stiff neck, Carotid bruit, Swelling/bruising, Tracheal deviation Respiratory: positive: Chest non-tender, No respiratory distress, Breath sounds nml. negative: Wheezes, Rales, Rhonchi Cardiovascular: positive: Regular rate & rhythm, No murmur, No gallop. negative : Irregularly irregular, Extrasystoles, Tachycardia, Bradycardia, Systolic murmur, Diastolic murmur Peripheral Pulses: 2+ Radial (R), 2+ Radial (L), 2+ Dorsalis pedis (R), 2+ Dorsalis pedis (L) Abdomen: positive: Non-tender, No organomegaly, Nml bowel sounds. negative: Tenderness, Guarding, Rebound Back: positive: Nml inspection. negative: CVA tenderness (R), CVA tenderness (L ) Skin: positive: Color nml, No rash, Warm, Dry. negative: Cyanosis, Diaphoresis , Pallor Extremities: positive: Non-tender. negative: Calf tenderness, Joint swelling, Selvin's sign/cords Neurologic/Psychiatric: positive: Oriented x3, Sensation nml, Mood/affect nml. negative: Sensory loss, Facial droop, Slurred/abnml speech, Depressed mood/ affect - Lab Results Fish Bones: 04/19/17 04:53 04/19/17 04:53 Other Labs: Lab Results x24hrs 04/19/17 04/19/17 04/19/17 Range/Units 12:00 04:53 04:53 WBC 7.8 (4.8-10.8) x10^3/uL RBC 3.30 L (4.70-6.10) 10^6/uL Hgb 12.0 L (14.0-18.0) g/dL Hct 34.8 L (42.0-52.0) % MCV 105.7 H (80.0-94.0) fL MCH 36.5 H (27.0-31.0) pg MCHC 34.5 (32.0-36.0) g/dL RDW 14.1 (12.0-15.0) % Plt Count 191 (130-450) 10^3/uL MPV 7.4 (7.4-11.4) fL Neut # 5.3 (1.5-6.6) 10^3/uL Lymph # 1.6 (1.5-3.5) 10^3/uL [place] # 0.7 (0.0-1.0) 10^3/uL Eos # 0.0 (0.0-0.7) 10^3/uL Baso # 0.1 (0.0-0.1) 10^3/uL Absolute Nucleated RBC 0.00 x10^3/uL Nucleated RBC % 0.0 /100WBC Sodium 137 (135-145) mmol/L Potassium 3.7 (3.5-5.0) mmol/L Chloride 106 (101-111) mmol/L Carbon Dioxide 23 (21-32) mmol/L Anion Gap 8.0 (6-13) BUN 12 (6-20) mg/dL Creatinine 1.0 (0.6-1.2) mg/dL Estimated GFR (MDRD) 75 L (>89) Glucose 127 H (70-100) mg/dL Calcium 7.7 L (8.5-10.3) mg/dL Magnesium 1.5 L (1.7-2.8) mg/dL Total Bilirubin 0.5 (0.2-1.0) mg/dL AST 44 H (10-42) IU/L ALT 35 (10-60) IU/L Alkaline Phosphatase 37 L (42-121) IU/L Total Protein 5.7 L (6.7-8.2) g/dL Albumin 3.1 L (3.2-5.5) g/dL Globulin 2.6 (2.1-4.2) g/dL Albumin/Globulin Ratio 1.2 (1.0-2.2) Urine Color YELLOW Urine Clarity CLEAR (CLEAR) Urine pH 6.0 (5.0-7.5) PH Ur Specific [place] >=1.030 H (1.002-1.030) Urine Protein NEGATIVE (NEGATIVE) mg/dL Urine Glucose (UA) NEGATIVE (NEGATIVE) mg/dL Urine Ketones NEGATIVE (NEGATIVE) mg/dL Urine Occult Blood NEGATIVE (NEGATIVE) Urine Nitrite NEGATIVE (NEGATIVE) Urine Bilirubin NEGATIVE (NEGATIVE) Urine Urobilinogen 0.2 (NORMAL) (NORMAL) E.U./dL Ur Leukocyte Esterase NEGATIVE (NEGATIVE) Ur Microscopic Review NOT INDICATED Urine Culture Comments NOT INDICATED Assessment/Plan - Problem List (1) Trimalleolar fracture Impression: (1) Trimalleolar fracture Conclusion/Plan: pt had surgery on last night, will follow up Orthopedics pain control continue PT/OT resume regular diet consult with Orthopedics. Pre-surgery cardiac risk assessment is lower. surgery tonight pain control NPO tonight IVF follow up surgeon (2) HTN (hypertension) Conclusion/Plan: stable, resume home Losartan vital monitor (3) Osteoporosis Conclusion/Plan: pt with hx if ostoporosis resume home meds (4) History of COPD Conclusion/Plan: stable, Duoneb PRN O2 supplement PRN
[2017-04-19] MEDS ORDERED: MAGNESIUM SULFATE 2 GRAM 2 GM/50 ML BAG IV ONE (16:00)
[2017-04-19] MEDS ORDERED: CALCIUM GLUCONATE 1,000 MG in SODIUM CHLORIDE 0.9% 50 ML IV SCH (17:00)
--- NOTE | 2017-04-19 19:36 | PROVIDER PROGRESS NOTE ---
Subjective - General Admit Date: 04/18/17 Procedure Date: 04/18/17 Post Op Days: 1 Procedure Performed: Right ankle ORIF trimalleolar - Other Other Information/Narrative: Pt comfortable with meds NV intact toes, Mild toe edema. No drainage in cast Imp: Expected post op course Plan: To work with PT to gain ambulatory safety Change dressing in a.m. Objective - Patient Data Vital Signs: Vital Signs x48h Temp Pulse Pulse Pulse Pulse Resp BP 04/19/17 18:48 04/19/17 18:22 16 04/19/17 16:30 37.0 C 96 18 04/19/17 14:09 37.2 C 98 18 04/19/17 12:50 116 H 113 H 107 H 133/72 H 04/19/17 12:49 119 H 114 H 86 133/72 H 04/19/17 12:47 37.9 C H BP BP BP Pulse Ox 04/19/17 18:48 96 04/19/17 18:22 126/66 98 04/19/17 16:30 117/62 99 04/19/17 14:09 109/58 L 97 04/19/17 12:50 123/55 L 126/75 04/19/17 12:49 123/55 L 126/75 04/19/17 12:47 Weight: Weight 04/17/17 04/18/17 04/19/17 23:59 23:59 23:59 Weight (kg) 104 kg Intake & Output: Intake and Output Totals x24h 04/17/17 04/18/17 04/19/17 23:59 23:59 23:59 Intake Total 2155.833 Output Total 1150 Balance 1005.833 - Lab Results Lab Results: 04/19/17 04:53 04/19/17 04:53 Other Lab Results: Lab Results x24hrs 04/19/17 04/19/17 04/19/17 Range/Units 12:00 04:53 04:53 WBC 7.8 (4.8-10.8) x10^3/uL RBC 3.30 L (4.70-6.10) 10^6/uL Hgb 12.0 L (14.0-18.0) g/dL Hct 34.8 L (42.0-52.0) % MCV 105.7 H (80.0-94.0) fL MCH 36.5 H (27.0-31.0) pg MCHC 34.5 (32.0-36.0) g/dL RDW 14.1 (12.0-15.0) % Plt Count 191 (130-450) 10^3/uL MPV 7.4 (7.4-11.4) fL Neut # 5.3 (1.5-6.6) 10^3/uL Lymph # 1.6 (1.5-3.5) 10^3/uL [place] # 0.7 (0.0-1.0) 10^3/uL Eos # 0.0 (0.0-0.7) 10^3/uL Baso # 0.1 (0.0-0.1) 10^3/uL Absolute Nucleated RBC 0.00 x10^3/uL Nucleated RBC % 0.0 /100WBC Sodium 137 (135-145) mmol/L Potassium 3.7 (3.5-5.0) mmol/L Chloride 106 (101-111) mmol/L Carbon Dioxide 23 (21-32) mmol/L Anion Gap 8.0 (6-13) BUN 12 (6-20) mg/dL Creatinine 1.0 (0.6-1.2) mg/dL Estimated GFR (MDRD) 75 L (>89) Glucose 127 H (70-100) mg/dL Calcium 7.7 L (8.5-10.3) mg/dL Magnesium 1.5 L (1.7-2.8) mg/dL Total Bilirubin 0.5 (0.2-1.0) mg/dL AST 44 H (10-42) IU/L ALT 35 (10-60) IU/L Alkaline Phosphatase 37 L (42-121) IU/L Total Protein 5.7 L (6.7-8.2) g/dL Albumin 3.1 L (3.2-5.5) g/dL Globulin 2.6 (2.1-4.2) g/dL Albumin/Globulin Ratio 1.2 (1.0-2.2) Urine Color YELLOW Urine Clarity CLEAR (CLEAR) Urine pH 6.0 (5.0-7.5) PH Ur Specific [place] >=1.030 H (1.002-1.030) Urine Protein NEGATIVE (NEGATIVE) mg/dL Urine Glucose (UA) NEGATIVE (NEGATIVE) mg/dL Urine Ketones NEGATIVE (NEGATIVE) mg/dL Urine Occult Blood NEGATIVE (NEGATIVE) Urine Nitrite NEGATIVE (NEGATIVE) Urine Bilirubin NEGATIVE (NEGATIVE) Urine Urobilinogen 0.2 (NORMAL) (NORMAL) E.U./dL Ur Leukocyte Esterase NEGATIVE (NEGATIVE) Ur Microscopic Review NOT INDICATED Urine Culture Comments NOT INDICATED - Current Medications Current Medications: Current Medications Generic Name Dose Route Start Last Admin Trade Name Freq PRN Reason Stop Dose Admin Acetaminophen/Hydrocodone Bitart 1 tab 04/18/17 18:37 04/19/17 17:06 [place] 5/325 PO 1 tab Q4HR PRN Administration Pain 5 to 7 Aspirin 81 mg 04/19/17 09:00 04/19/17 10:08 Ecotrin PO 81 mg DAILY [facility] Administration Calcium Carbonate/Glycine 1,000 mg 04/19/17 09:00 04/19/17 10:07 Oysco-500 PO 1,000 mg DAILY [facility] Administration Cholecalciferol 2,000 unit 04/19/17 09:00 04/19/17 10:08 Vitamin D3 PO 2,000 unit DAILY [facility] Administration Enoxaparin Sodium 40 mg 04/19/17 09:00 04/19/17 10:09 Lovenox SUBQ 40 mg DAILY [facility] Administration Famotidine 20 mg 04/19/17 09:00 04/19/17 10:08 Pepcid PO 20 mg DAILY [facility] Administration Folic Acid 1 mg 04/18/17 20:00 04/19/17 10:09 PO 1 mg DAILY [facility] Administration Hydromorphone HCl 0.5 mg 04/18/17 18:37 04/19/17 09:51 Dilaudid Inj Syringe IVP 0.5 mg Q2H PRN Administration Pain 8 to 10 Sodium Chloride 1,000 mls @ 75 mls/hr 04/19/17 08:30 04/19/17 13:15 Normal Saline 0.9% IV 75 mls/hr .[id number] [facility] Infusion Ketorolac Tromethamine 15 mg 04/19/17 11:19 04/19/17 11:35 Toradol Inj IVP 04/24/17 11:18 15 mg Q6HR PRN Administration PAIN Losartan Potassium 50 mg 04/19/17 09:00 04/19/17 10:08 Cozaar PO 50 mg DAILY [facility] Administration Non Formulary Med ( 1 each 04/19/17 09:00 04/19/17 11:26 Teriparatide [Forteo SUBQ Not Given ] 2.4 Ml) DAILY [facility] Polyethylene Glycol 17 gm 04/19/17 09:00 04/19/17 11:34 Miralax PO 17 gm DAILY [facility] Administration Sodium Chloride 10 ml 04/18/17 22:00 04/19/17 11:47 Normal Saline Flush 0.9% IVP Not Given Q8HR [facility] Tamsulosin HCl 0.4 mg 04/19/17 09:00 04/19/17 10:08 Flomax PO 0.4 mg DAILY [facility] Administration Thiamine HCl 100 mg 04/18/17 20:00 04/19/17 10:08 Vitamin B-1 PO 100 mg DAILY [facility] Administration
[2017-04-20] MEDS: HYDROcod/ACETAM 5/325 MG TABLET PO PRN ×2 (00:19→06:16)
[2017-04-20] MEDS: SODIUM CHLORIDE 0.9% 1,000 ML IV SCH ×2 (01:43→14:25)
[2017-04-20] MEDS: SODIUM CHLORIDE FLUSH 0.9% 10 ML SYRINGE IVP SCH ×3 (04:18→21:21)
[2017-04-20 06:16] LABS: BASOPHILS # (AUTO) 0.1 10^3/uL (0.0-0.1); BASOPHILS % (AUTO) 0.7 %; EOSINOPHILS # (AUTO) 0.1 10^3/uL (0.0-0.7); EOSINOPHILS % (AUTO) 1.5 %; HGB - HEMOGLOBIN 11.1 g/dL (14.0-18.0); LYMPHOCYTES # (AUTO) 1.5 10^3/uL (1.5-3.5); LYMPHOCYTES % (AUTO) 21.4 %; MEAN CORPUSCULAR HEMOGLOBIN 36.8 pg (27.0-31.0); MEAN CORPUSCULAR HGB CONC 34.5 g/dL (32.0-36.0); MEAN CORPUSCULAR VOLUME 106.5 fL (80.0-94.0); MEAN PLATELET VOLUME 7.6 fL (7.4-11.4); MONOCYTES # (AUTO) 0.9 10^3/uL (0.0-1.0); MONOCYTES % (AUTO) 12.7 %; NEUTROPHILS # (AUTO) 4.5 10^3/uL (1.5-6.6); NEUTROPHILS % (AUTO) 63.7 %; PLT - PLATELET COUNT 165 10^3/uL (130-450); RED BLOOD COUNT 3.03 10^6/uL (4.70-6.10); RED CELL DISTRIBUTION WIDTH 14.2 % (12.0-15.0); WHITE BLOOD COUNT 7.1 x10^3/uL (4.8-10.8)
[2017-04-20 06:25] LABS: BILIRUBIN,TOTAL 1.1 mg/dL (0.2-1.0); CALCIUM 8.5 mg/dL (8.5-10.3); CREATININE 0.8 mg/dL (0.6-1.2); TOTAL PROTEIN 5.9 g/dL (6.7-8.2)
[2017-04-20] MEDS: FAMOTIDINE 20 MG TABLET PO SCH (09:13)
[2017-04-20] MEDS: ASPIRIN EC 81 MG TABLET PO SCH (09:13)
[2017-04-20] MEDS: HYDROmorphone 1 MG/ML SYRINGE IVP PRN (09:13)
[2017-04-20] MEDS: CALCIUM CARB (OYSTER SHELL) 500 MG TABLET PO SCH (09:13)
[2017-04-20] MEDS: TAMSULOSIN 0.4 MG CAPSULE PO SCH (09:13)
[2017-04-20] MEDS: LOSARTAN 50 MG TABLET PO SCH (09:13)
[2017-04-20] MEDS: CHOLECALCIFEROL 1,000 UNIT TABLET PO SCH (09:14)
[2017-04-20] MEDS: FOLIC ACID 1 MG TABLET PO SCH (09:15)
[2017-04-20] MEDS: THIAMINE 100 MG TABLET PO SCH (09:15)
[2017-04-20] MEDS: ENOXAPARIN 40 MG/0.4 ML SYRINGE SUBQ SCH (09:15)
[2017-04-20] MEDS: POLYETHYLENE GLYCOL 3350 17 GM PACKET PO SCH (09:15)
[2017-04-20] MEDS: TERIPARATIDE SUBQ SCH (09:19)
--- NOTE | 2017-04-20 13:57 | PROVIDER PROGRESS NOTE ---
Subjective - Prog Note Date Prog Note Date: 04/20/17 - Subjective Pt reports feeling: Improved Subjective: pt report his pain is some better but still difficult to ambulate. Pt report some feverish and night sweating, and cough. Denies chest pain, shortness of breath, headache. Current Medications - Current Medications Current Medications: Active Medications Acetaminophen (Tylenol) 650 mg PO Q4HR PRN PRN Reason: Pain 1 to 4 Last Admin: 04/20/17 12:31 Dose: 650 mg Acetaminophen/Hydrocodone Bitart ([place] 5/325) 1 tab PO Q4HR PRN PRN Reason: Pain 5 to 7 Last Admin: 04/20/17 06:16 Dose: 1 tab Aspirin (Ecotrin) 81 mg PO DAILY [facility] Last Admin: 04/20/17 09:13 Dose: 81 mg Calcium Carbonate/Glycine (Oysco-500) 1,000 mg PO DAILY [facility] Last Admin: 04/20/17 09:13 Dose: 1,000 mg Cholecalciferol (Vitamin D3) 2,000 unit PO DAILY [facility] Last Admin: 04/20/17 09:14 Dose: 2,000 unit Enoxaparin Sodium (Lovenox) 40 mg SUBQ DAILY [facility] Last Admin: 04/20/17 09:15 Dose: 40 mg Famotidine (Pepcid) 20 mg PO DAILY [facility] Last Admin: 04/20/17 09:13 Dose: 20 mg Folic Acid () 1 mg PO DAILY [facility] Last Admin: 04/20/17 09:15 Dose: 1 mg Hydromorphone HCl (Dilaudid Inj Syringe) 0.5 mg IVP Q2H PRN PRN Reason: Pain 8 to 10 Last Admin: 04/20/17 09:13 Dose: 0.5 mg Piperacillin Sod/Tazobactam (Sod 3.375 gm/ Sodium Chloride) 100 mls @ 200 mls/ hr IV Q6H [facility] Sodium Chloride (Normal Saline 0.9%) 1,000 mls @ 100 mls/hr IV .Q10H [facility] Ketorolac Tromethamine (Toradol Inj) 15 mg IVP Q6HR PRN PRN Reason: PAIN Stop: 04/24/17 11:18 Last Admin: 04/19/17 20:18 Dose: 15 mg Losartan Potassium (Cozaar) 50 mg PO DAILY [facility] Last Admin: 04/20/17 09:13 Dose: 50 mg Ondansetron HCl (Zofran Inj) 4 mg IVP Q6HR PRN PRN Reason: Nausea / Vomiting Non Formulary Med ( Teriparatide [Forteo ] 2.4 Ml) 1 each SUBQ DAILY [facility] Last Admin: 04/20/17 09:19 Dose: Not Given Polyethylene Glycol (Miralax) 17 gm PO DAILY [facility] Last Admin: 04/20/17 09:15 Dose: 17 gm Sodium Chloride (Normal Saline Flush 0.9%) 10 ml IVP PRN PRN PRN Reason: NEEDED PER PROVIDER ORDERS Sodium Chloride (Normal Saline Flush 0.9%) 10 ml IVP Q8HR [facility] Last Admin: 04/20/17 12:44 Dose: Not Given Tamsulosin HCl (Flomax) 0.4 mg PO DAILY [facility] Last Admin: 04/20/17 09:13 Dose: 0.4 mg Thiamine HCl (Vitamin B-1) 100 mg PO DAILY [facility] Last Admin: 04/20/17 09:15 Dose: 100 mg Teriparatide [Forteo] 2.4 ml SUBQ DAILY 01/24/17 Cholecalciferol (Vitamin D3) [Vitamin D3] 2,000 units PO DAILY 01/25/17 Losartan [Cozaar] 50 mg PO DAILY 01/25/17 Aspirin [Aspirin EC] 81 mg PO DAILY 04/18/17 Calcium Carbonate 1,200 mg PO DAILY 04/18/17 Turmeric Root Extract [Turmeric] 1,000 mg PO DAILY 04/18/17 Objective - Vital Signs/Intake & Output Reviewed Vital Signs: Yes Vital Signs: Vital Signs x48h Temp Pulse Resp BP Pulse Ox 04/20/17 12:17 38.0 C H 107 H 20 118/56 L 98 04/20/17 08:52 37.3 C 100 18 146/66 H 94 Intake & Output: Intake & Output 04/17/17 04/18/17 04/19/17 04/20/17 23:59 23:59 23:59 23:59 Intake Total 2607.500 2032.5 Output Total 1150 350 Balance 2924.140 5535.5 - Objective General Appearance: positive: No acute distress, Alert. negative: Lethargic Eyes Bilateral: positive: Normal inspection, PERRL, EOMI, No lid inflammation, Conjunctivae nml ENT: positive: ENT inspection nml, Pharynx nml, No signs of dehydration. negative: Purulent nasal drainage, Pharyngeal erythema, Oral lesions Neck: positive: Nml inspection, Thyroid nml, No JVD, Trachea midline. negative : Thyromegaly, Lymphadenopathy (R), Lymphadenopathy (L), Stiff neck, Swelling/ bruising, Tracheal deviation Respiratory: positive: Chest non-tender, No respiratory distress, Breath sounds nml. negative: Wheezes, Rales, Rhonchi Cardiovascular: positive: Regular rate & rhythm, No murmur, No gallop. negative : Irregularly irregular, Extrasystoles, Tachycardia, Bradycardia, Systolic murmur, Diastolic murmur Peripheral Pulses: 2+ Radial (R), 2+ Radial (L), 2+ Dorsalis pedis (R), 2+ Dorsalis pedis (L) Abdomen: positive: Non-tender, No organomegaly, Nml bowel sounds, No distention. negative: Tenderness, Guarding, Rebound Back: positive: Nml inspection. negative: CVA tenderness (R), CVA tenderness (L ) Skin: positive: Color nml, No rash, Warm, Dry. negative: Cyanosis, Diaphoresis , Pallor Extremities: positive: Non-tender, Nml appearance. negative: Calf tenderness, Joint swelling, Selvin's sign/cords Neurologic/Psychiatric: positive: Oriented x3, Sensation nml, Mood/affect nml. negative: Sensory loss, Facial droop, Slurred/abnml speech, Depressed mood/ affect - Lab Results Fish Bones: 04/20/17 05:25 04/20/17 05:25 Other Labs: Lab Results x24hrs 04/20/17 04/20/17 Range/Units 05:25 05:25 WBC 7.1 (4.8-10.8) x10^3/uL RBC 3.03 L (4.70-6.10) 10^6/uL Hgb 11.1 L (14.0-18.0) g/dL Hct 32.2 L (42.0-52.0) % MCV 106.5 H (80.0-94.0) fL MCH 36.8 H (27.0-31.0) pg MCHC 34.5 (32.0-36.0) g/dL RDW 14.2 (12.0-15.0) % Plt Count 165 (130-450) 10^3/uL MPV 7.6 (7.4-11.4) fL Neut # 4.5 (1.5-6.6) 10^3/uL Lymph # 1.5 (1.5-3.5) 10^3/uL [place] # 0.9 (0.0-1.0) 10^3/uL Eos # 0.1 (0.0-0.7) 10^3/uL Baso # 0.1 (0.0-0.1) 10^3/uL Absolute Nucleated RBC 0.00 x10^3/uL Nucleated RBC % 0.1 /100WBC Sodium 137 (135-145) mmol/L Potassium 3.8 (3.5-5.0) mmol/L Chloride 107 (101-111) mmol/L Carbon Dioxide 24 (21-32) mmol/L Anion Gap 6.0 (6-13) BUN 12 (6-20) mg/dL Creatinine 0.8 (0.6-1.2) mg/dL Estimated GFR (MDRD) 96 (>89) Glucose 115 H (70-100) mg/dL Calcium 8.5 (8.5-10.3) mg/dL Total Bilirubin 1.1 H (0.2-1.0) mg/dL AST 24 (10-42) IU/L ALT 21 (10-60) IU/L Alkaline Phosphatase 33 L (42-121) IU/L Total Protein 5.9 L (6.7-8.2) g/dL Albumin 3.0 L (3.2-5.5) g/dL Globulin 2.9 (2.1-4.2) g/dL Albumin/Globulin Ratio 1.0 (1.0-2.2) Assessment/Plan - Problem List (1) Trimalleolar fracture Impression: (1) Trimalleolar fracture Conclusion/Plan: pain control continue PT/OT pt had surgery on last night, will follow up Orthopedics pain control continue PT/OT resume regular diet consult with Orthopedics. Pre-surgery cardiac risk assessment is lower. surgery tonight pain control NPO tonight IVF follow up surgeon (2) HTN (hypertension) Conclusion/Plan: stable, resume home Losartan vital monitor (3) Osteoporosis Conclusion/Plan: pt with hx if ostoporosis resume home meds (4) History of COPD Conclusion/Plan: stable, Duoneb PRN O2 supplement PRN (5) fever pt has temperature 38, cough order CXR, is pending order Zosyn incentive spectrometer blood culture IVF to 100cc/h vital, lab monitor
[2017-04-20] MEDS: PIPERACILLIN/TAZOBACTAM 3.375 GM in SODIUM CHLORIDE 0.9% MINIBAG 100 ML IV SCH ×2 (14:58→20:41)
--- NOTE | 2017-04-20 15:32 | XRAY Report ---
[facility]: Fluoroscopy time only, no images submitted for interpretation. Fluoroscopy time 0 minutes, 53 seconds. QAMARD
--- NOTE | 2017-04-20 17:03 | XRAY Report ---
FRONTAL CHEST: 04/20/2017 CLINICAL INDICATION: Fever, chills. COMPARISON: 12/18/2014 FINDINGS: Frontal view of the chest demonstrates a normal cardiac silhouette. 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 Otherwise, the lungs are clear. No effusion or pneumothorax is present. IMPRESSION: NO EVIDENCE OF ACUTE CARDIOPULMONARY DISEASE. TD: 04/20/2017 17:02
[2017-04-21] MEDS: HYDROcod/ACETAM 5/325 MG TABLET PO PRN (01:53)
[2017-04-21] MEDS: SODIUM CHLORIDE 0.9% 1,000 ML IV SCH ×2 (01:55→12:41)
[2017-04-21] MEDS: PIPERACILLIN/TAZOBACTAM 3.375 GM in SODIUM CHLORIDE 0.9% MINIBAG 100 ML IV SCH ×4 (01:58→20:58)
[2017-04-21 05:58] LABS: BASOPHILS % (AUTO) 0.7 %; EOSINOPHILS # (AUTO) 0.1 10^3/uL (0.0-0.7); EOSINOPHILS % (AUTO) 2.2 %; HGB - HEMOGLOBIN 10.8 g/dL (14.0-18.0); LYMPHOCYTES # (AUTO) 1.3 10^3/uL (1.5-3.5); LYMPHOCYTES % (AUTO) 20.3 %; MEAN CORPUSCULAR HEMOGLOBIN 36.4 pg (27.0-31.0); MEAN CORPUSCULAR HGB CONC 34.4 g/dL (32.0-36.0); MEAN CORPUSCULAR VOLUME 105.9 fL (80.0-94.0); MEAN PLATELET VOLUME 7.6 fL (7.4-11.4); MONOCYTES # (AUTO) 0.7 10^3/uL (0.0-1.0); MONOCYTES % (AUTO) 10.5 %; NEUTROPHILS # (AUTO) 4.4 10^3/uL (1.5-6.6); NEUTROPHILS % (AUTO) 66.3 %; PLT - PLATELET COUNT 158 10^3/uL (130-450); RED BLOOD COUNT 2.95 10^6/uL (4.70-6.10); RED CELL DISTRIBUTION WIDTH 13.6 % (12.0-15.0); WHITE BLOOD COUNT 6.7 x10^3/uL (4.8-10.8)
[2017-04-21 06:09] LABS: ALBUMIN 2.7 g/dL (3.2-5.5); BILIRUBIN,TOTAL 0.8 mg/dL (0.2-1.0); CREATININE 0.8 mg/dL (0.6-1.2); MAGNESIUM 1.7 mg/dL (1.7-2.8); TOTAL PROTEIN 5.5 g/dL (6.7-8.2)
[2017-04-21] MEDS: SODIUM CHLORIDE FLUSH 0.9% 10 ML SYRINGE IVP SCH ×3 (07:29→20:58)
[2017-04-21] MEDS: FAMOTIDINE 20 MG TABLET PO SCH (08:16)
[2017-04-21] MEDS: CHOLECALCIFEROL 1,000 UNIT TABLET PO SCH (08:16)
[2017-04-21] MEDS: FOLIC ACID 1 MG TABLET PO SCH (08:16)
[2017-04-21] MEDS: ASPIRIN EC 81 MG TABLET PO SCH (08:16)
[2017-04-21] MEDS: CALCIUM CARB (OYSTER SHELL) 500 MG TABLET PO SCH (08:17)
[2017-04-21] MEDS: POLYETHYLENE GLYCOL 3350 17 GM PACKET PO SCH (08:17)
[2017-04-21] MEDS: KETOROLAC 15 MG/ML VIAL IVP PRN ×2 (08:21→14:06)
[2017-04-21] MEDS: ENOXAPARIN 40 MG/0.4 ML SYRINGE SUBQ SCH (08:28)
[2017-04-21] MEDS: LOSARTAN 50 MG TABLET PO SCH (08:29)
[2017-04-21] MEDS: TAMSULOSIN 0.4 MG CAPSULE PO SCH (08:30)
[2017-04-21] MEDS: TERIPARATIDE SUBQ SCH (08:30)
[2017-04-21] MEDS: THIAMINE 100 MG TABLET PO SCH (08:30)
--- NOTE | 2017-04-21 13:56 | PROVIDER PROGRESS NOTE ---
Subjective - Prog Note Date Prog Note Date: 04/21/17 - Subjective Pt reports feeling: No change Subjective: pt state he is feeling better, the pain is much better controlled today. pt still had lower degree fever on last night. Pt report he had lots of drainage on his surgery site. The surgeon changed the dress, and relief lots of pressure on his foot. Current Medications - Current Medications Current Medications: Active Medications Acetaminophen (Tylenol) 650 mg PO Q4HR PRN PRN Reason: Pain 1 to 4 Last Admin: 04/20/17 12:31 Dose: 650 mg Acetaminophen/Hydrocodone Bitart ([place] 5/325) 1 tab PO Q4HR PRN PRN Reason: Pain 5 to 7 Last Admin: 04/21/17 01:53 Dose: 1 tab Aspirin (Ecotrin) 81 mg PO DAILY [facility] Last Admin: 04/21/17 08:16 Dose: 81 mg Calcium Carbonate/Glycine (Oysco-500) 1,000 mg PO DAILY [facility] Last Admin: 04/21/17 08:17 Dose: 1,000 mg Cholecalciferol (Vitamin D3) 2,000 unit PO DAILY [facility] Last Admin: 04/21/17 08:16 Dose: 2,000 unit Enoxaparin Sodium (Lovenox) 40 mg SUBQ DAILY [facility] Last Admin: 04/21/17 08:28 Dose: 40 mg Famotidine (Pepcid) 20 mg PO DAILY [facility] Last Admin: 04/21/17 08:16 Dose: 20 mg Folic Acid () 1 mg PO DAILY [facility] Last Admin: 04/21/17 08:16 Dose: 1 mg Hydromorphone HCl (Dilaudid Inj Syringe) 0.5 mg IVP Q2H PRN PRN Reason: Pain 8 to 10 Last Admin: 04/20/17 09:13 Dose: 0.5 mg Piperacillin Sod/Tazobactam (Sod 3.375 gm/ Sodium Chloride) 100 mls @ 200 mls/ hr IV Q6H [facility] Last Infusion: 04/21/17 08:55 Dose: Infused Sodium Chloride (Normal Saline 0.9%) 1,000 mls @ 100 mls/hr IV .Q10H [facility] Last Admin: 04/21/17 12:41 Dose: 100 mls/hr Ketorolac Tromethamine (Toradol Inj) 15 mg IVP Q6HR PRN PRN Reason: PAIN Stop: 02/12/18 11:18 Last Admin: 04/21/17 08:21 Dose: 15 mg Losartan Potassium (Cozaar) 50 mg PO DAILY [facility] Last Admin: 04/21/17 08:29 Dose: 50 mg Ondansetron HCl (Zofran Inj) 4 mg IVP Q6HR PRN PRN Reason: Nausea / Vomiting Non Formulary Med ( Teriparatide [Forteo ] 2.4 Ml) 1 each SUBQ DAILY [facility] Last Admin: 04/21/17 08:30 Dose: Not Given Polyethylene Glycol (Miralax) 17 gm PO DAILY [facility] Last Admin: 04/21/17 08:17 Dose: 17 gm Sodium Chloride (Normal Saline Flush 0.9%) 10 ml IVP PRN PRN PRN Reason: NEEDED PER PROVIDER ORDERS Sodium Chloride (Normal Saline Flush 0.9%) 10 ml IVP Q8HR [facility] Last Admin: 04/21/17 07:29 Dose: Not Given Tamsulosin HCl (Flomax) 0.4 mg PO DAILY [facility] Last Admin: 04/21/17 08:30 Dose: 0.4 mg Thiamine HCl (Vitamin B-1) 100 mg PO DAILY [facility] Last Admin: 04/21/17 08:30 Dose: 100 mg Teriparatide [Forteo] 2.4 ml SUBQ DAILY 01/24/17 Cholecalciferol (Vitamin D3) [Vitamin D3] 2,000 units PO DAILY 01/25/17 Losartan [Cozaar] 50 mg PO DAILY 01/25/17 Aspirin [Aspirin EC] 81 mg PO DAILY 04/18/17 Calcium Carbonate 1,200 mg PO DAILY 04/18/17 Turmeric Root Extract [Turmeric] 1,000 mg PO DAILY 04/18/17 Objective - Vital Signs/Intake & Output Reviewed Vital Signs: Yes Vital Signs: Vital Signs x48h Temp Pulse Resp BP Pulse Ox 04/21/17 12:47 37.3 C 83 18 146/78 H 98 04/21/17 08:15 37.3 C 89 18 150/75 H 95 Intake & Output: Intake & Output 04/18/17 04/19/17 04/20/17 04/21/17 23:59 23:59 23:59 23:59 Intake Total 2607.500 3962.5 2913.333 Output Total 1150 1325 1275 Balance 1838.347 9437.5 1638.333 - Objective General Appearance: positive: No acute distress, Alert. negative: Lethargic Eyes Bilateral: positive: Normal inspection, PERRL, No lid inflammation, Conjunctivae nml ENT: positive: ENT inspection nml, Pharynx nml, No signs of dehydration. negative: Purulent nasal drainage, Pharyngeal erythema, Oral lesions Neck: positive: Nml inspection, Thyroid nml, No JVD, Trachea midline. negative : Thyromegaly, Lymphadenopathy (R), Lymphadenopathy (L), Stiff neck, Carotid bruit, Swelling/bruising, Tracheal deviation Respiratory: positive: Chest non-tender, No respiratory distress, Breath sounds nml. negative: Wheezes, Rales, Rhonchi Cardiovascular: positive: Regular rate & rhythm, No murmur, No gallop. negative : Irregularly irregular, Extrasystoles, Tachycardia, Bradycardia, Systolic murmur, Diastolic murmur Peripheral Pulses: 2+ Radial (R), 2+ Radial (L), 2+ Dorsalis pedis (R), 2+ Dorsalis pedis (L) Abdomen: positive: Non-tender, No organomegaly, Nml bowel sounds, No distention. negative: Tenderness, Guarding, Rebound Back: positive: Nml inspection. negative: CVA tenderness (R), CVA tenderness (L ) Skin: positive: Color nml, No rash, Warm, Dry. negative: Cyanosis, Diaphoresis , Pallor Extremities: positive: Non-tender, Nml appearance. negative: Calf tenderness, Joint swelling, Selvin's sign/cords Neurologic/Psychiatric: positive: Oriented x3, Sensation nml, Mood/affect nml. negative: Sensory loss, Facial droop, Slurred/abnml speech, Depressed mood/ affect - Lab Results Fish Bones: 04/21/17 05:15 04/21/17 05:15 Other Labs: Lab Results x24hrs 04/21/17 04/21/17 Range/Units 05:15 05:15 WBC 6.7 (4.8-10.8) x10^3/uL RBC 2.95 L (4.70-6.10) 10^6/uL Hgb 10.8 L (14.0-18.0) g/dL Hct 31.3 L (42.0-52.0) % MCV 105.9 H (80.0-94.0) fL MCH 36.4 H (27.0-31.0) pg MCHC 34.4 (32.0-36.0) g/dL RDW 13.6 (12.0-15.0) % Plt Count 158 (130-450) 10^3/uL MPV 7.6 (7.4-11.4) fL Neut # 4.4 (1.5-6.6) 10^3/uL Lymph # 1.3 L (1.5-3.5) 10^3/uL [place] # 0.7 (0.0-1.0) 10^3/uL Eos # 0.1 (0.0-0.7) 10^3/uL Baso # 0.0 (0.0-0.1) 10^3/uL Absolute Nucleated RBC 0.00 x10^3/uL Nucleated RBC % 0.0 /100WBC Sodium 136 (135-145) mmol/L Potassium 3.7 (3.5-5.0) mmol/L Chloride 106 (101-111) mmol/L Carbon Dioxide 24 (21-32) mmol/L Anion Gap 6.0 (6-13) BUN 8 (6-20) mg/dL Creatinine 0.8 (0.6-1.2) mg/dL Estimated GFR (MDRD) 96 (>89) Glucose 115 H (70-100) mg/dL Calcium 8.0 L (8.5-10.3) mg/dL Magnesium 1.7 (1.7-2.8) mg/dL Total Bilirubin 0.8 (0.2-1.0) mg/dL AST 26 (10-42) IU/L ALT 22 (10-60) IU/L Alkaline Phosphatase 34 L (42-121) IU/L Total Protein 5.5 L (6.7-8.2) g/dL Albumin 2.7 L (3.2-5.5) g/dL Globulin 2.8 (2.1-4.2) g/dL Albumin/Globulin Ratio 1.0 (1.0-2.2) Assessment/Plan - Problem List (1) Trimalleolar fracture Impression: (1) Trimalleolar fracture Conclusion/Plan: pain is much better pt state, after dressing change by surgeon, lots of drainage follow up the surgeon, pain control continue PT/OT pain control continue PT/OT pt had surgery on last night, will follow up Orthopedics pain control continue PT/OT resume regular diet consult with Orthopedics. Pre-surgery cardiac risk assessment is lower. surgery tonight pain control NPO tonight IVF follow up surgeon (2) HTN (hypertension) Conclusion/Plan: stable, resume home Losartan vital monitor (3) Osteoporosis Conclusion/Plan: pt with hx if ostoporosis resume home meds (4) History of COPD Conclusion/Plan: stable, Duoneb PRN O2 supplement PRN (5) fever pt has temperature 38, cough CXR unremarkable it may be caused from surgery site wound culture from drainage from surgery site continue antibiotics order CXR, is pending order Zosyn incentive spectrometer blood culture IVF to 100cc/h vital, lab monitor
--- NOTE | 2017-04-21 16:58 | PROVIDER PROGRESS NOTE ---
Subjective - General Admit Date: 04/18/17 Procedure Date: 04/18/17 Post Op Days: 3 Procedure Performed: Right ankle ORIF trimalleolar - Other Other Information/Narrative: Pt reports no pain after dressing was removed yesterday. Notes drainage from posterior of cast. Was up in chair 2 hr today. Still with great difficulty walking. PE: Cast opened and wounds examined closely. Light serosanguinous fluid in dressing -- changed. Skin excellent with no erythema or swelling. Wound margins well closed. Imp Temperature of 38 post op does not mean wound infection. Seems very healthy at this time.. Plan: Recheck to alessio العلي Objective - Patient Data Vital Signs: Vital Signs x48h Temp Pulse Resp BP Pulse Ox 04/21/17 15:58 37.0 C 81 16 137/82 H 95 04/21/17 12:47 37.3 C 83 18 146/78 H 98 Intake & Output: Intake and Output Totals x24h 04/19/17 04/20/17 04/21/17 23:59 23:59 23:59 Intake Total 2607.500 3962.5 2913.333 Output Total 1150 1325 1275 Balance 7531.230 8528.5 1638.333 - Lab Results Lab Results: 04/21/17 05:15 04/21/17 05:15 Other Lab Results: Lab Results x24hrs 04/21/17 04/21/17 Range/Units 05:15 05:15 WBC 6.7 (4.8-10.8) x10^3/uL RBC 2.95 L (4.70-6.10) 10^6/uL Hgb 10.8 L (14.0-18.0) g/dL Hct 31.3 L (42.0-52.0) % MCV 105.9 H (80.0-94.0) fL MCH 36.4 H (27.0-31.0) pg MCHC 34.4 (32.0-36.0) g/dL RDW 13.6 (12.0-15.0) % Plt Count 158 (130-450) 10^3/uL MPV 7.6 (7.4-11.4) fL Neut # 4.4 (1.5-6.6) 10^3/uL Lymph # 1.3 L (1.5-3.5) 10^3/uL [place] # 0.7 (0.0-1.0) 10^3/uL Eos # 0.1 (0.0-0.7) 10^3/uL Baso # 0.0 (0.0-0.1) 10^3/uL Absolute Nucleated RBC 0.00 x10^3/uL Nucleated RBC % 0.0 /100WBC Sodium 136 (135-145) mmol/L Potassium 3.7 (3.5-5.0) mmol/L Chloride 106 (101-111) mmol/L Carbon Dioxide 24 (21-32) mmol/L Anion Gap 6.0 (6-13) BUN 8 (6-20) mg/dL Creatinine 0.8 (0.6-1.2) mg/dL Estimated GFR (MDRD) 96 (>89) Glucose 115 H (70-100) mg/dL Calcium 8.0 L (8.5-10.3) mg/dL Magnesium 1.7 (1.7-2.8) mg/dL Total Bilirubin 0.8 (0.2-1.0) mg/dL AST 26 (10-42) IU/L ALT 22 (10-60) IU/L Alkaline Phosphatase 34 L (42-121) IU/L Total Protein 5.5 L (6.7-8.2) g/dL Albumin 2.7 L (3.2-5.5) g/dL Globulin 2.8 (2.1-4.2) g/dL Albumin/Globulin Ratio 1.0 (1.0-2.2) - Current Medications Current Medications: Current Medications Generic Name Dose Route Start Last Admin Trade Name Freq PRN Reason Stop Dose Admin Acetaminophen 650 mg 04/18/17 18:37 04/20/17 12:31 Tylenol PO 650 mg Q4HR PRN Administration Pain 1 to 4 Acetaminophen/Hydrocodone Bitart 1 tab 04/18/17 18:37 04/21/17 01:53 [place] 5/325 PO 1 tab Q4HR PRN Administration Pain 5 to 7 Aspirin 81 mg 04/19/17 09:00 04/21/17 08:16 Ecotrin PO 81 mg DAILY [facility] Administration Calcium Carbonate/Glycine 1,000 mg 04/19/17 09:00 04/21/17 08:17 Oysco-500 PO 1,000 mg DAILY [facility] Administration Cholecalciferol 2,000 unit 04/19/17 09:00 04/21/17 08:16 Vitamin D3 PO 2,000 unit DAILY [facility] Administration Enoxaparin Sodium 40 mg 04/19/17 09:00 04/21/17 08:28 Lovenox SUBQ 40 mg DAILY [facility] Administration Famotidine 20 mg 04/19/17 09:00 04/21/17 08:16 Pepcid PO 20 mg DAILY [facility] Administration Folic Acid 1 mg 04/18/17 20:00 04/21/17 08:16 PO 1 mg DAILY [facility] Administration Hydromorphone HCl 0.5 mg 04/18/17 18:37 04/20/17 09:13 Dilaudid Inj Syringe IVP 0.5 mg Q2H PRN Administration Pain 8 to 10 Piperacillin Sod/Tazobactam 100 mls @ 200 mls/hr 04/20/17 14:00 04/21/17 14: 09 Sod 3.375 gm/ Sodium Chloride IV 200 mls/hr Q6H [facility] Administration Sodium Chloride 1,000 mls @ 100 mls/hr 04/20/17 13:52 04/21/17 12:41 Normal Saline 0.9% IV 100 mls/hr .Q10H [facility] Administration Ketorolac Tromethamine 15 mg 04/19/17 11:19 04/21/17 14:06 Toradol Inj IVP 04/24/17 11:18 15 mg Q6HR PRN Administration PAIN Losartan Potassium 50 mg 04/19/17 09:00 04/21/17 08:29 Cozaar PO 50 mg DAILY [facility] Administration Non Formulary Med ( 1 each 04/19/17 09:00 04/21/17 08:30 Teriparatide [Forteo SUBQ Not Given ] 2.4 Ml) DAILY [facility] Polyethylene Glycol 17 gm 04/19/17 09:00 04/21/17 08:17 Miralax PO 17 gm DAILY [facility] Administration Sodium Chloride 10 ml 04/18/17 22:00 04/21/17 14:09 Normal Saline Flush 0.9% IVP 10 ml Q8HR [facility] Administration Tamsulosin HCl 0.4 mg 04/19/17 09:00 04/21/17 08:30 Flomax PO 0.4 mg DAILY [facility] Administration Thiamine HCl 100 mg 04/18/17 20:00 04/21/17 08:30 Vitamin B-1 PO 100 mg DAILY [facility] Administration
[2017-04-22] MEDS: SODIUM CHLORIDE 0.9% 1,000 ML IV SCH ×2 (00:16→11:27)
[2017-04-22] MEDS: PIPERACILLIN/TAZOBACTAM 3.375 GM in SODIUM CHLORIDE 0.9% MINIBAG 100 ML IV SCH ×3 (01:38→14:47)
[2017-04-22] MEDS: SODIUM CHLORIDE FLUSH 0.9% 10 ML SYRINGE IVP SCH ×2 (05:10→14:48)
[2017-04-22 06:19] LABS: BASOPHILS # (AUTO) 0.1 10^3/uL (0.0-0.1); EOSINOPHILS # (AUTO) 0.2 10^3/uL (0.0-0.7); EOSINOPHILS % (AUTO) 3.4 %; HGB - HEMOGLOBIN 10.7 g/dL (14.0-18.0); LYMPHOCYTES # (AUTO) 1.2 10^3/uL (1.5-3.5); LYMPHOCYTES % (AUTO) 18.4 %; MEAN CORPUSCULAR HEMOGLOBIN 36.1 pg (27.0-31.0); MEAN CORPUSCULAR HGB CONC 34.3 g/dL (32.0-36.0); MEAN CORPUSCULAR VOLUME 105.5 fL (80.0-94.0); MEAN PLATELET VOLUME 7.7 fL (7.4-11.4); MONOCYTES # (AUTO) 0.8 10^3/uL (0.0-1.0); MONOCYTES % (AUTO) 11.2 %; NEUTROPHILS # (AUTO) 4.4 10^3/uL (1.5-6.6); PLT - PLATELET COUNT 181 10^3/uL (130-450); RED BLOOD COUNT 2.97 10^6/uL (4.70-6.10); RED CELL DISTRIBUTION WIDTH 13.6 % (12.0-15.0); WHITE BLOOD COUNT 6.7 x10^3/uL (4.8-10.8)
[2017-04-22 06:29] LABS: ALBUMIN 2.8 g/dL (3.2-5.5); ALBUMIN/GLOBULIN RATIO 0.9 (1.0-2.2); BILIRUBIN,TOTAL 0.9 mg/dL (0.2-1.0); CALCIUM 8.4 mg/dL (8.5-10.3); CREATININE 0.9 mg/dL (0.6-1.2); TOTAL PROTEIN 5.8 g/dL (6.7-8.2)
[2017-04-22] MEDS: ASPIRIN EC 81 MG TABLET PO SCH (08:38)
[2017-04-22] MEDS: FOLIC ACID 1 MG TABLET PO SCH (08:38)
[2017-04-22] MEDS: LOSARTAN 50 MG TABLET PO SCH (08:38)
[2017-04-22] MEDS: TAMSULOSIN 0.4 MG CAPSULE PO SCH (08:38)
[2017-04-22] MEDS: THIAMINE 100 MG TABLET PO SCH (08:38)
[2017-04-22] MEDS: CALCIUM CARB (OYSTER SHELL) 500 MG TABLET PO SCH (08:38)
[2017-04-22] MEDS: FAMOTIDINE 20 MG TABLET PO SCH (08:38)
[2017-04-22] MEDS: CHOLECALCIFEROL 1,000 UNIT TABLET PO SCH (08:39)
[2017-04-22] MEDS: ENOXAPARIN 40 MG/0.4 ML SYRINGE SUBQ SCH (08:39)
[2017-04-22] MEDS: POLYETHYLENE GLYCOL 3350 17 GM PACKET PO SCH ×2 (08:39→08:51)
[2017-04-22] MEDS: TERIPARATIDE SUBQ SCH (08:46)
[2017-04-22] MEDS: HYDROcod/ACETAM 5/325 MG TABLET PO PRN (09:50)
--- NOTE | 2017-04-22 10:19 | Discharge Plan ---
"Discharge Plan for SNF / [facility] - DC Plan and Transition Orders Disposition: 03 SNF DC/Xfer Condition: Good SNF Transition Orders: Admit to: Alejandro, no listed PCP. Discharge Diagnosis: Trimalleolar fracture of right ankle, fever, ETOH abuse, history of kidney stones. Medicare Certification: I certify that Post Hospital fdc care is medically necessary on a continuing basis for any of the conditions for which she/he is receiving care during hospitalization. Notify PCP of admission and forward orders to primary provider for signature. Weight on admission and weekly. Call PCP immediately if weight increases by 10 pounds or if patient develops dyspnea, chest pain/tightness or edema. House Bowel Program: yes; If no BM after 2 days, nurse may give M.O.M. 30ml PO PRN and /or ducolax Supp 1 [place] and /or FELISA 250mg P.O., and/or senna 1-2 tabs PO. On day 3 nurse may give repeat above order until residents constipation is resolved. Immunizations:Annual Influenza Vaccine: yes.(between Nov 11 and June 10.) Unless allergy or already given Two-Step PPD: yes; per [facility] [phone] or appropriate documentation of approved exceptions Treatments & Other Orders: PT/OT/speech as per Alejandro. Use of assistive devices. Oxygen Orders: 1-2L nasal cannula to keep oxygen 90%. Lab Tests or X-Rays Orders: 10 day follow up with Ortho/x-rays. No labs necessary. Orthopedic Orders: Monitor drainage from LLE, see ortho in ~10 days. Medications: PLEASE REFER TO THE DISCHARGE MEDICATION LIST. Insulin Orders? NO Diagnosis: Initiate hypo and hyperglycemia protocols for BG <70 and BG >375. May check BG prn for signs/symptoms of dysglycemia. LOW DOSE MODERATE DOSE MODERATE/HIGH DOSE HIGH DOSE GB UNITS GB UNITS GB UNITS GB UNITS 61-140 0 UNITS 61-140 0 UNITS 61-140 0 UNITS 61-140 0 UNITS 141-175 1 UNITS 141-175 1 UNITS 141-175 2 UNITS 141-175 3 UNITS 176-225 2 UNITS 176-225 3 UNITS 176-225 4 UNITS 176-225 5 UNITS 226-275 3 UNITS 226-275 5 UNITS 226-275 6 UNITS 226-275 7 UNITS 276-325 4 UNITS 276-325 7 UNITS 276-325 8 UNITS 276-325 9 UNITS 326-375 5 UNITS 326-375 9 UNITS 326-375 10 UNITS 326-375 11 UNITS >375 CONTACT MD >375 CONTACT MD >375 CONTACT MD >375 CONTACT MD Allergies and Adverse Reactions: Allergies Allergy/AdvReac Type Severity Reaction Status Date / Time No Known Drug Allergies Allergy Verified 01/24/17 14:57 - Medications New Prescriptions: HYDROcod/ACETAM 5/325 [[place] 5/325] 1 tab PO Q4HR PRN #30 tablet PRN Reason: Pain 5 to 7 Levofloxacin [Levaquin] 750 mg PO DAILY 14 Days #14 tablet - Diet Type: Geriatric Texture: Regular Liquids: Thin May have monthly special meal: Yes - Therapies | Activity Therapy: Evaluation | Treat if indicated: Speech, PT, OT Rehabilitation Potential: Maximize functional status, Maintain present ADL Functional Weight Bearing: Partial Weight Extremities: [id number] Assistance Devices: Walker"
--- NOTE | 2017-04-22 10:29 | PROVIDER PROGRESS NOTE ---
Subjective - General Admit Date: 04/18/17 Procedure Date: 04/18/17 Post Op Days: 4 Procedure Performed: Right ankle ORIF trimalleolar - Review of Systems Wound/Incisions: positive: Healing well (Dressing changed. Wound OK. No erythema. still moderate serosanguinous drainage..) Objective - Patient Data Vital Signs: Vital Signs x48h Temp Pulse Resp BP Pulse Ox 04/22/17 08:02 37.7 C H 84 16 158/77 H 95 04/22/17 05:54 37.5 C 98 16 153/87 H 95 Intake & Output: Intake and Output Totals x24h 04/20/17 04/21/17 04/22/17 23:59 23:59 23:59 Intake Total 3962.5 4453.333 460 Output Total 1325 1800 1350 Balance 2637.5 2653.333 -890 - Lab Results Lab Results: 04/22/17 05:50 04/22/17 05:50 Other Lab Results: Lab Results x24hrs 04/22/17 04/22/17 Range/Units 05:50 05:50 WBC 6.7 (4.8-10.8) x10^3/uL RBC 2.97 L (4.70-6.10) 10^6/uL Hgb 10.7 L (14.0-18.0) g/dL Hct 31.3 L (42.0-52.0) % MCV 105.5 H (80.0-94.0) fL MCH 36.1 H (27.0-31.0) pg MCHC 34.3 (32.0-36.0) g/dL RDW 13.6 (12.0-15.0) % Plt Count 181 (130-450) 10^3/uL MPV 7.7 (7.4-11.4) fL Neut # 4.4 (1.5-6.6) 10^3/uL Lymph # 1.2 L (1.5-3.5) 10^3/uL [place] # 0.8 (0.0-1.0) 10^3/uL Eos # 0.2 (0.0-0.7) 10^3/uL Baso # 0.1 (0.0-0.1) 10^3/uL Absolute Nucleated RBC 0.01 x10^3/uL Nucleated RBC % 0.1 /100WBC Sodium 136 (135-145) mmol/L Potassium 4.0 (3.5-5.0) mmol/L Chloride 104 (101-111) mmol/L Carbon Dioxide 23 (21-32) mmol/L Anion Gap 9.0 (6-13) BUN 8 (6-20) mg/dL Creatinine 0.9 (0.6-1.2) mg/dL Estimated GFR (MDRD) 84 L (>89) Glucose 103 H (70-100) mg/dL Calcium 8.4 L (8.5-10.3) mg/dL Total Bilirubin 0.9 (0.2-1.0) mg/dL AST 25 (10-42) IU/L ALT 21 (10-60) IU/L Alkaline Phosphatase 35 L (42-121) IU/L Total Protein 5.8 L (6.7-8.2) g/dL Albumin 2.8 L (3.2-5.5) g/dL Globulin 3.0 (2.1-4.2) g/dL Albumin/Globulin Ratio 0.9 L (1.0-2.2) - Current Medications Current Medications: Current Medications Generic Name Dose Route Start Last Admin Trade Name Freq PRN Reason Stop Dose Admin Acetaminophen 650 mg 04/18/17 18:37 04/20/17 12:31 Tylenol PO 650 mg Q4HR PRN Administration Pain 1 to 4 Acetaminophen/Hydrocodone Bitart 1 tab 04/18/17 18:37 04/22/17 09:50 [place] 5/325 PO 1 tab Q4HR PRN Administration Pain 5 to 7 Aspirin 81 mg 04/19/17 09:00 04/22/17 08:38 Ecotrin PO 81 mg DAILY [facility] Administration Calcium Carbonate/Glycine 1,000 mg 04/19/17 09:00 04/22/17 08:38 Oysco-500 PO 1,000 mg DAILY [facility] Administration Cholecalciferol 2,000 unit 04/19/17 09:00 04/22/17 08:39 Vitamin D3 PO 2,000 unit DAILY [facility] Administration Enoxaparin Sodium 40 mg 04/19/17 09:00 04/22/17 08:39 Lovenox SUBQ 40 mg DAILY [facility] Administration Famotidine 20 mg 04/19/17 09:00 04/22/17 08:38 Pepcid PO 20 mg DAILY [facility] Administration Folic Acid 1 mg 04/18/17 20:00 04/22/17 08:38 PO 1 mg DAILY [facility] Administration Hydromorphone HCl 0.5 mg 04/18/17 18:37 04/20/17 09:13 Dilaudid Inj Syringe IVP 0.5 mg Q2H PRN Administration Pain 8 to 10 Piperacillin Sod/Tazobactam 100 mls @ 200 mls/hr 04/20/17 14:00 04/22/17 08: 40 Sod 3.375 gm/ Sodium Chloride IV 200 mls/hr Q6H [facility] Administration Sodium Chloride 1,000 mls @ 100 mls/hr 04/20/17 13:52 04/22/17 00:16 Normal Saline 0.9% IV 100 mls/hr .Q10H [facility] Administration Ketorolac Tromethamine 15 mg 04/19/17 11:19 04/21/17 14:06 Toradol Inj IVP 04/24/17 11:18 15 mg Q6HR PRN Administration PAIN Losartan Potassium 50 mg 04/19/17 09:00 04/22/17 08:38 Cozaar PO 50 mg DAILY [facility] Administration Non Formulary Med ( 1 each 04/19/17 09:00 04/22/17 08:46 Teriparatide [Forteo SUBQ Not Given ] 2.4 Ml) DAILY [facility] Polyethylene Glycol 17 gm 04/19/17 09:00 04/22/17 08:51 Miralax PO Not Given DAILY [facility] Sodium Chloride 10 ml 04/18/17 22:00 04/22/17 05:10 Normal Saline Flush 0.9% IVP Not Given Q8HR [facility] Tamsulosin HCl 0.4 mg 04/19/17 09:00 04/22/17 08:38 Flomax PO 0.4 mg DAILY [facility] Administration Thiamine HCl 100 mg 04/18/17 20:00 04/22/17 08:38 Vitamin B-1 PO 100 mg DAILY [facility] Administration Impression/Plan - Problem List Problem List: Ankle seems to be doing well.. OK for DC\ f/u in my office in 10 days. Cast dressing change abouit Apr 27 Dry gauze only thru cast windows.
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
[2017-04-22 14:18] VITALS: BP 155/78
[2017-04-23] MEDS ORDERED: TURMERIC ROOT EXTRACT 1000 MG PO SCH (09:00)
== END 2017-04-22 14:15 | DRG 494 ==
LOC: ED 12:47 → MS2 18:37
PROVIDERS: ADMIT Nurse Practitioner Gerontology; ATTEND Nurse Practitioner
PROC: 0QSG34Z Reposition Right Tibia with Internal Fixation Device, Percutaneous Approach (ICD-10-PCS; 2017-04-18)
PROC: 0QSJ34Z Reposition Right Fibula with Internal Fixation Device, Percutaneous Approach (ICD-10-PCS; principal; 2017-04-18 19:30)
DX: S82.851A Displaced trimalleolar fracture of right lower leg, initial encounter for closed fracture (principal); R55 Syncope and collapse; R53.1 Weakness; F10.10 Alcohol abuse, uncomplicated; J44.9 Chronic obstructive pulmonary disease, unspecified; R50.82 Postprocedural fever; I10 Essential (primary) hypertension; M81.0 Age-related osteoporosis without current pathological fracture; W18.30XA Fall on same level, unspecified, initial encounter; Y93.01 Activity, walking, marching and hiking; Y92.007 Garden or yard of unspecified non-institutional (private) residence as the place of occurrence of the external cause; Y99.8 Other external cause status; Z66 Do not resuscitate; Z79.82 Long term (current) use of aspirin; Z79.899 Other long term (current) drug therapy; Z87.442 Personal history of urinary calculi; Z87.891 Personal history of nicotine dependence; Z98.890 Other specified postprocedural states
CPT/HCPCS: 27818; 36415; 71045; 80053; 80320; 81001; 81003; 82550; 83690; 83735; 85025; 87040; 87086; 93005; 96374; 96375; 96376; 99283; 99284

== ENCOUNTER 2017-04-25 21:30 | Outpatient (CLI) | payer MEDICARE, OTHER ==
[2017-04-25 22:51] LABS: BASOPHILS # (AUTO) 0.1 10^3/uL (0.0-0.1); BASOPHILS % (AUTO) 0.9 %; EOSINOPHILS # (AUTO) 0.1 10^3/uL (0.0-0.7); EOSINOPHILS % (AUTO) 1.1 %; LYMPHOCYTES % (AUTO) 11.7 %; MEAN CORPUSCULAR HEMOGLOBIN 35.1 pg (27.0-31.0); MEAN CORPUSCULAR HGB CONC 33.4 g/dL (32.0-36.0); MEAN CORPUSCULAR VOLUME 105.2 fL (80.0-94.0); MEAN PLATELET VOLUME 7.7 fL (7.4-11.4); MONOCYTES # (AUTO) 0.9 10^3/uL (0.0-1.0); MONOCYTES % (AUTO) 11.1 %; NEUTROPHILS # (AUTO) 6.1 10^3/uL (1.5-6.6); NEUTROPHILS % (AUTO) 75.2 %; PLT - PLATELET COUNT 300 10^3/uL (130-450); RED BLOOD COUNT 3.12 10^6/uL (4.70-6.10); RED CELL DISTRIBUTION WIDTH 13.7 % (12.0-15.0); WHITE BLOOD COUNT 8.2 x10^3/uL (4.8-10.8)
== END 2017-04-25 21:31 | disposition home or self-care (01) ==
LOC: LAB.R 21:30
DX: J18.9 Pneumonia, unspecified organism (principal)
CPT/HCPCS: 85025

== ENCOUNTER 2017-04-27 07:40 | Outpatient (CLI) | payer MEDICARE, OTHER ==
[2017-04-27 09:53] LABS: CALCIUM 8.4 mg/dL (8.5-10.3); CREATININE 0.8 mg/dL (0.6-1.2)
== END 2017-04-27 07:41 | disposition home or self-care (01) ==
LOC: LAB.R 07:40
DX: J18.9 Pneumonia, unspecified organism (principal); F10.10 Alcohol abuse, uncomplicated
CPT/HCPCS: 80048; 82607